=== PATIENT | female | born 1945 | race Caucasian/White ===

== ENCOUNTER 2017-02-01 06:14 | Inpatient (IN) ==
[2017-02-01] MEDS ORDERED: IOPAMIDOL 100 ML BOTTLE IJ ONE (06:15)
[2017-02-01] MEDS ORDERED: IPRATROPIUM/ALBUTEROL 3 ML AMPUL.NEB NEB ONE ×2 (06:27→06:34)
[2017-02-01] MEDS ORDERED: methylPREDNISolone SOD SUCC 125 MG/2 ML VIAL ONE (06:30)
[2017-02-01] MEDS ORDERED: methylPREDNISolone SOD SUCC 125 MG/2 ML VIAL IV ONE (06:34)
[2017-02-01] MEDS ORDERED: 0.9 % SODIUM CHLORIDE 1,000 ML IV SCH (06:45)
[2017-02-01] MEDS ORDERED: FUROSEMIDE 40 MG/4 ML VIAL IV ONE (06:53)
--- NOTE | 2017-02-01 06:56 | Emergency Department Note ---
SOB HPI - General Chief Complaint: Shortness of Breath/Dyspnea Stated Complaint: SOB Time Seen by Provider: 02/01/17 06:31 Source: patient Mode of arrival: ambulatory Limitations: no limitations - History of Present Illness 71-year-old female with a history of shortness of breath for the last month. She was seen at [facility] approximately a week and a half ago for COPD exacerbation when which she was given steroids and breathing treatments. States she stopped her prednisone approximately 5 days ago is not been using her albuterol. Comes in acutely short of breath at this time with sats in the low 80s initially patient states she has been a heavy smoker smoking 2 packs of cigarettes a day for greater than 40 years has quit approximately 1 or 2 years ago. She denies chest pain she has not been treated for CHF in the past.. Denies cardiac disease. Been no weight gain there is no edema in the lower extremities there is no orthopnea. Patient is afebrile. - Related Data Home Medications Medication Instructions Recorded Confirmed albuterol sulfate HFA 90 1 puff INHALATION Q6H 01/22/17 02/02/17 mcg/actuation aerosol inhaler amlodipine 5 mg tablet 5 mg PO QDAY 01/22/17 02/02/17 budesonide-formoterol HFA 160 2 inh INHALATION BID 01/22/17 02/02/17 mcg-4.5 mcg/actuation aerosol inhaler bupropion HCl XL 300 mg 24 hr 300 mg PO QDAY tab 01/22/17 02/02/17 tablet, extended release fluoxetine 40 mg capsule 40 mg PO QDAY 01/22/17 02/02/17 simvastatin 20 mg tablet 20 mg PO QHS tab 01/22/17 02/02/17 triamterene 37.5 1 tab-cap PO QDAY 01/22/17 02/02/17 mg-hydrochlorothiazide 25 mg tablet Naproxen (Pp) [Aleve (Pp)] 220 mg PO PRN PRN 02/02/17 02/02/17 Omeprazole 20 mg PO PRN PRN 02/02/17 02/02/17 Allergies Allergy/AdvReac Type Severity Reaction Status Date / Time No Known Drug Allergies Allergy Verified 02/01/17 06:22 Review of Systems All systems ED: reviewed and negative except as stated. Constitutional: Denies: fever, chills Cardiovascular: Reports: dyspnea on exertion. Denies: chest pain, palpitations , orthopnea Respiratory: Reports: as per HPI, cough, wheezes Gastrointestinal: Denies: abdominal pain Past Medical History - Past Medical History Medical history: Reports: COPD Surgical history ED: Reports: non-contributory Family history: Reports: non-contributory - Social History smoking status: Former smoker Packs per day: 2 Packyears: 80 Alcohol use: Reports: Rarely Drug use: Reports: none Physical Exam - General Limitations: no limitations General appearance: other (Able to speak in full sentences) - Head Head exam: atraumatic, normocephalic - Eye Eye exam: Present: normal appearance, PERRL - ENT ENT exam: normal exam, normal oropharynx - Neck Neck exam: Present: normal inspection, full ROM, trachea midline - Chest Chest inspection: Present: normal inspection, symmetric chest wall rise - Respiratory Respiratory exam: Present: normal lung sounds bilaterally, wheezes - Cardiovascular Cardiovascular exam: Present: regular rate, normal rhythm - Abdominal Exam Abdominal exam: Present: soft. Absent: distention, tenderness, guarding - Extremities Exam Extremities exam: Present: normal inspection, full ROM. Absent: tenderness - Back Exam Back exam: Present: normal inspection, full ROM. Absent: tenderness - Neurological Exam Neurological exam: Present: alert, oriented X3, CN II-XII intact - Psychiatric Psychiatric exam: Present: normal affect, normal mood - Skin Skin exam: Present: warm, dry Course Vital Signs Temperature 97.1 F 02/01/17 06:16 Pulse Rate 111 H 02/01/17 06:16 Respiratory Rate 60 H 02/01/17 06:16 Blood Pressure 150/65 02/01/17 06:16 Pulse Oximetry (%) 84 L 02/01/17 06:16 Temperature 97.8 F 02/03/17 12:00 Pulse Rate 106 H 02/03/17 13:24 Respiratory Rate 22 02/03/17 13:24 Blood Pressure 137/80 02/03/17 12:00 Pulse Oximetry (%) 92 02/03/17 12:00 Shortness of Breath/Dyspnea - MDM Narrative Medical decision making narrative: Chest x-ray discussed with Dr. Vora patient has severe interstitial fibrosis. But blood vessels are distended revealing some CHF. So area of consolidation in the right lateral lung grace with the possibility of it being pneumonia. Patient has been diuresed with Lasix. bnp was 354, blood cultures drawn and lactic acid.. stareted on rocephlin and zithromax.. pt trial of Bi Pap. cT sHOWS LARGE LYMPHADENAPTHY Hospitalist consulted and pt admitted - Lab Data Result diagrams: 02/02/17 04:25 02/03/17 04:22 Lab Results 02/01/17 02/01/17 02/01/17 Range/Units 06:40 06:40 06:40 WBC 17.3 H (4.5-11.0) K/mcL RBC 5.24 H (4.00-5.20) M/mcL Hgb 15.9 H (12.0-15.0) g/dL Hct 47.8 (36.0-48.0) % POC Hct 49.0 H (36.0-48.0) % MCV 91.4 (80.0-100.0) fL MCH 30.3 (26.0-34.0) pg MCHC 33.2 (31.0-36.0) g/dL RDW 13.2 (11.5-14.5) % Plt Count 347 (140-440) K/mcL MPV 9.1 (7.4-10.4) fL Gran % 85.7 H (38.0-78.0) % Lymph % (Auto) 10.3 L (15.5-49.0) % [place] % (Auto) 3.2 (1.0-12.0) % Eos % (Auto) 0.6 (0.0-7.0) % Baso % (Auto) 0.2 (0.0-2.0) % Gran # 14.8 H (1.8-8.0) K/mcL Lymph # (Auto) 1.8 (1.5-4.8) K/mcL [place] # (Auto) 0.5 (0.1-0.9) K/mcL Eos # (Auto) 0.1 (0.0-0.7) K/mcL Baso # (Auto) 0 (0.0-0.3) K/mcL D-Dimer 3.71 H (0.00-0.40) ug/ml POC Sodium 138 (133-145) mmol/L POC Potassium 3.9 (3.3-5.1) mmol/L POC Chloride 98 (96-108) mmol/L POC Total CO2 24 (22-30) mmol/L POC BUN 20 (8-23) mg/dl POC Creatinine 0.9 (0.6-1.1) mg/dl POC Glucose 140 H (70-105) mg/dL Hemoglobin A1c (4.0-6.0) % HGB Estim Average Glucose mg/dL POC WB Ioniz Calcium 1.02 L (1.16-1.32) mmol/L Total Creatine Kinase 56 (24-170) IU/L CK-MB (CK-2) 1.6 (0-2.9) ng/ml Troponin T (0-0.03) ng/ml NT-Pro-B Natriuret Pep 354.0 H (0-125) pg/ml Procalcitonin (<0.10) ng/mL 02/01/17 02/01/17 02/01/17 Range/Units 06:40 06:40 06:40 WBC (4.5-11.0) K/mcL RBC (4.00-5.20) M/mcL Hgb (12.0-15.0) g/dL Hct (36.0-48.0) % POC Hct (36.0-48.0) % MCV (80.0-100.0) fL MCH (26.0-34.0) pg MCHC (31.0-36.0) g/dL RDW (11.5-14.5) % Plt Count (140-440) K/mcL MPV (7.4-10.4) fL Gran % (38.0-78.0) % Lymph % (Auto) (15.5-49.0) % [place] % (Auto) (1.0-12.0) % Eos % (Auto) (0.0-7.0) % Baso % (Auto) (0.0-2.0) % Gran # (1.8-8.0) K/mcL Lymph # (Auto) (1.5-4.8) K/mcL [place] # (Auto) (0.1-0.9) K/mcL Eos # (Auto) (0.0-0.7) K/mcL Baso # (Auto) (0.0-0.3) K/mcL D-Dimer (0.00-0.40) ug/ml POC Sodium (133-145) mmol/L POC Potassium (3.3-5.1) mmol/L POC Chloride (96-108) mmol/L POC Total CO2 (22-30) mmol/L POC BUN (8-23) mg/dl POC Creatinine (0.6-1.1) mg/dl POC Glucose (70-105) mg/dL Hemoglobin A1c 6.1 H (4.0-6.0) % HGB Estim Average Glucose 128 mg/dL POC WB Ioniz Calcium (1.16-1.32) mmol/L Total Creatine Kinase (24-170) IU/L CK-MB (CK-2) (0-2.9) ng/ml Troponin T < 0.01 (0-0.03) ng/ml NT-Pro-B Natriuret Pep (0-125) pg/ml Procalcitonin < 0.05 (<0.10) ng/mL Disposition Clinical Impression: Congestive heart failure Disposition: Xfer As Inpt ([facility]) Condition: Fair
[2017-02-01 07:12] LABS: Basophils # (Auto) 0 K/mcL (0.0-0.3); Basophils % (Auto) 0.2 % (0.0-2.0); Eosinophils # (Auto) 0.1 K/mcL (0.0-0.7); Eosinophils % (Auto) 0.6 % (0.0-7.0); Granulocytes % (Auto) 85.7 % (38.0-78.0); Lymphocytes # (Auto) 1.8 K/mcL (1.5-4.8); Lymphocytes % (Auto) 10.3 % (15.5-49.0); Mean Cell Volume 91.4 fL (80.0-100.0); Mean Corpuscular HGB Conc 33.2 g/dL (31.0-36.0); Mean Corpuscular Hemoglobin 30.3 pg (26.0-34.0); Monocytes # (Auto) 0.5 K/mcL (0.1-0.9); Monocytes % (Auto) 3.2 % (1.0-12.0); Platelet Count 347 K/mcL (140-440); RBC 5.24 M/mcL (4.00-5.20); Red Cell Distribution Width 13.2 % (11.5-14.5)
[2017-02-01 07:34] LABS: Creatine Kinase 56 IU/L (24-170); Creatine Kinase MB 1.6 ng/ml (0-2.9)
[2017-02-01] MEDS ORDERED: cefTRIAXone 1 GM in DEXTROSE 5% IN WATER 50 ML IV ONE (07:51)
[2017-02-01] MEDS ORDERED: LEVOFLOXACIN 500 MG/100 ML BAG IV ONE (07:51)
[2017-02-01] MEDS ORDERED: LORazepam 2 MG/ML VIAL IV ONE (09:37)
[2017-02-01] MEDS ORDERED: LORazepam 2 MG/ML VIAL ONE (09:43)
--- NOTE | 2017-02-01 10:04 | Cat Scan Report ---
CLINICAL INFORMATION: Dyspnea. History of smoking COMPARISON: Plain film from 01/15/2017 and 02/01/2017 TECHNIQUE: Axial images obtained through the chest. 80 cc intravenous contrast administration was administered, and scanning was performed during pulmonary arterial phase. Sagittally and coronally reformatted images were obtained. MIP reformatted images. FINDINGS: Pulmonary parenchymal windows show severe paraseptal and centrilobular emphysema changes featuring multiple bullae - predominantly in the upper lobes and the peripheral lower lobes. There is also chronic bronchitis featuring wall thickening and dilatation of the bronchi with elevated lung volumes. There is extensive mixed groundglass and interstitial airspace disease throughout both peripheral lungs with relative central sparing. A 17 mm pleural-based mass in the lateral right lung apex (image 20) may represent fibrosis or malignancy. Mediastinal windows show massively enlarged bilateral hilar, precarinal and right peritracheal lymph nodes. The largest right hilar lymph node spans 4 cm. The pulmonary arteries are well opacified - no evidence of embolus. The central pulmonary arteries are mildly enlarged - the main pulmonary artery is 3 cm diameter suggestive of pulmonary hypertension. Thoracic aorta is normal in contour and caliber. Scattered atherosclerotic plaque seen in the aorta. The heart is mildly enlarged and there is moderate fibrofatty calcific plaque in the coronary arteries. Esophagus is grossly normal. No thyroid abnormality. There are no effusions. Images should the upper abdomen show a 2.2 cm mass in the left adrenal gland which is likely a benign adenoma. The visualized spleen pancreas and liver and gallbladder are normal. Bone windows show no osseous abnormality. IMPRESSION: 1. Severe centrilobular and periseptal emphysema changes. Mild enlargement of the central pulmonary arteries is compatible with pulmonary hypertension 2. Extensive patchy mixed groundglass alveolar/interstitial airspace disease throughout the periphery of both lungs. The differential diagnosis is extensive: Atypical edema from prior CHF, Sarcoidosis (particularly in light of bihilar adenopathy) , opportunistic infection (PCP, cytomegalovirus, RSV etc.) chronic noninfectious inflammatory disease (eosinophillic pneumonia, other idiopathic interstitial pneumonias, drug toxicity or hypersensitivity pneumonitis). 3. Markedly enlarged bilateral hilar, right paratracheal and precarinal lymph nodes. This may represent metastatic adenopathy from lung carcinoma such as small cell (a 17 mm pleural-based mass in the lateral right lung apex which may represent a primary lung carcinoma]. Alternatively, the possibility of lymphoma, sarcoidosis or atypical infection (TB, fungal, viral etc.) should be entertained. Consider pulmonary referral for transbronchial biopsy of one of the lymph nodes Interpreted and Authenticated by: Jake Vora 02/01/17
--- NOTE | 2017-02-01 10:11 | Internal Med History&Physical ---
Medical - H&P: HPI Patient information: Note initiated : 02/01/17 at 10:07 am Patient: Sommer Alvarez 71 y/o F admitted on for Shortness of breath. History of present illness: Ms. Alvarez is a 71 year old woman who has a greater than [id number] smoking history. She says she began to notice mild dyspnea with exertion approximately 10 years ago. However, she has been quite stable until a few weeks ago. A few weeks ago she began to notice significant dyspnea with minor activity. She was seen in an emergency room out of town about 2 weeks ago, and told that she was hypoxic. They told her they could not prescribe home O2 because it would not be paid for, but then she was able to arrange it through a home oxygen company. She was given a steroid taper, which she said made her feel wonderful, but she felt worse as soon as it was finished. She then saw her primary care physician recently, who prescribed more prednisone, and also prescribed an inhaler. However, the patient did not understand she was supposed to use the inhaler while she was still on the steroids, so she really did not use it. She presents today with worsening dyspnea, mainly with exertion. She says she really cannot even walk across the room. She was referred by her PCP to see our farm labor contractor, Dr. Rossi, on February 14. Lately, she has felt chilled, but denies any fever. She has a chronic cough, but says only once every day or so will she cough up a small amount of cream- colored phlegm. She had one day where her throat felt a little sore. She says she only occasionally has headaches or slight dizziness. She denies orthopnea. She denies new eye or ear symptoms, dysphasia, chest pain or palpitations, abdominal pain, nausea or vomiting. She says she has had occasional loose stools over the last several weeks. She has some urinary hesitancy and incontinence, intermittently and chronically. She denies any significant leg edema. He has not noticed any swollen glands. ER evaluation showed a PO2 in the 50s. CT angiogram was negative for PE, but was markedly abnormal, with enlarged lymph nodes and various other findings consistent with possible sarcoid, possible interstitial lung disease, possible malignancy. BNP was mildly elevated at 350. Leukocyte count was elevated. EKG and troponin were negative. Ionized calcium is a bit low. Past medical history: Glucose intolerance COPD Interstitial lung disease Somnolence Depression Hyperlipidemia Hypertension Previous smoking history greater than 80 pack years Medications: Albuterol inhaler every 6 hours as needed Budesonide-formoterol HFA 160-4.5 2 puffs twice daily Amlodipine 5 mg daily Dyazide 37.5/25 1 daily Bupropion XL 300 mg daily Prozac 40 mg daily Simvastatin 20 mg daily Home oxygen. Allergies: No known drug allergies Family history: Her mother after multiple strokes. Her father suddenly at age 82, of unknown causes. Her daughter of colon cancer within the last year. I believe her son as well. She says various aunts have had various other cancers, probably including breast. Social history: 80+ pack year smoking history, quit about 3 years ago. She drinks 1-3 glasses of wine per day. She does not use drugs. She lives alone. She has no family in the area, but her granddaughter is currently visiting from [place]. She has other friends that live in [place], that come to visit occasionally. Medical - H&P: Meds Home Medications Medication Instructions Recorded Confirmed Type albuterol sulfate HFA 90 1 puff INHALATION Q6H 01/22/17 01/22/17 History mcg/actuation aerosol inhaler amlodipine 5 mg tablet 5 mg PO QDAY 01/22/17 01/22/17 History budesonide-formoterol HFA 160 2 inh INHALATION BID 01/22/17 01/22/17 History mcg-4.5 mcg/actuation aerosol inhaler bupropion HCl XL 300 mg 24 hr 300 mg PO QDAY tab 01/22/17 01/22/17 History tablet, extended release fluoxetine 40 mg capsule 40 mg PO QDAY 01/22/17 01/22/17 History simvastatin 20 mg tablet 20 mg PO QHS tab 01/22/17 01/22/17 History triamterene 37.5 1 tab-cap PO QDAY 01/22/17 01/22/17 History mg-hydrochlorothiazide 25 mg tablet Allergies Allergy/AdvReac Type Severity Reaction Status Date / Time No Known Drug Allergies Allergy Verified 02/01/17 06:22 Medical - H&P: Exam - Constitutional Vitals: Temp Pulse Resp BP Pulse Ox 97.1 F 107 H 19 130/68 91 02/01/17 06:16 02/01/17 09:43 02/01/17 09:43 02/01/17 08:31 02/01/17 09:43 On presentation, heart rate was 109. Respiratory rate 29, and unlabored. O2 saturation was 84% on room air, but also dropped into the 70s in the ER. On 10 L nonrebreather, O2 sat came up to 93%. Because of her respiratory distress, she was ultimately placed on BiPAP. Head: Normocephalic atraumatic. Eyes: PERRLA, EOMI, anicteric. Ears: TMs and canals are clear. Pharynx: Pharynx is clear. Teeth are in fair condition. Neck: Is supple, without obvious lymphadenopathy, JVD, thyromegaly. Bruits were hard to listen for, as the equipment in her room is quite noisy. Cardiac exam: Shows regular rate and rhythm, with normal S1 and S2. No murmurs , rubs, gallops are appreciated. Lungs: Have a few scattered crackles, but are otherwise mostly clear currently. Breathing is mildly labored. I cannot appreciate any rhonchi or wheezes at this time. Abdomen: Is soft and nontender, without obvious masses. Bowel sounds are active. Extremities: Show no edema. Pulses are intact. No cyst is noted. Neurologic exam: Is grossly nonfocal. Skin exam: Does not show any worrisome lesions. Medical - H&P: Reslt - Labs CBC & Chem 7: 02/01/17 06:40 Labs: Short CBC 02/01/17 Range/Units 06:40 WBC 17.3 H (4.5-11.0) K/mcL Hgb 15.9 H (12.0-15.0) g/dL Hct 47.8 (36.0-48.0) % Plt Count 347 (140-440) K/mcL Cardiac Enzymes 02/01/17 02/01/17 Range/Units 06:40 06:40 Total Creatine Kinase 56 (24-170) IU/L CK-MB (CK-2) 1.6 (0-2.9) ng/ml Troponin T < 0.01 (0-0.03) ng/ml February 01: CBC differential shows absolute neutrophil count of 14,800. D-dimer is elevated at 3.7 Ionized calcium low at 1.02 BNP elevated at 354 Troponin less than 0.01 Pro-calcitonin is less than 0.05 CT angiogram of the chest: Severe centrilobular emphysema. Mild pulmonary hypertension. Extensive patchy groundglass alveolar disease throughout the lung peripheries. Consider atypical edema, sarcoid, opportunistic infection. Consider interstitial pneumonia. Markedly enlarged bilateral hilar paratracheal and pre-carinal lymph nodes, consistent with metastatic adenopathy , lymphoma, sarcoid, atypical infection. EKG shows sinus tachycardia at a rate of about 100. Without obvious acute ischemic changes. ABG on 5 L nasal cannula: PH 7.44, PCO2 37, PO2 50, bicarb 25, O2 saturation 84% Chest x-ray: Medical - H&P: A/P (1) Acute and chronic respiratory failure ([id number]) Current visit: Yes Status: Acute (2) Hypocalcemia Current visit: Yes Status: Acute (3) Other specified interstitial pulmonary diseases Current visit: No Status: Chronic (4) Hypertension Current visit: No Status: Chronic (5) Acute exacerbation of chronic obstructive pulmonary disease (COPD) Current visit: No Status: Acute (6) Hypoxia Current visit: No Status: Chronic - Narrative A/P Narrative: #1. Pulmonary. This patient presents with significant hypoxia, and very abnormal chest CT, with a wide differential diagnosis. She also has significant leukocytosis, which may be due to the oral steroids she has been taking lately.. She may have an interstitial pneumonia, superimposed on severe chronic emphysema. However she also has lymphadenopathy, and other abnormal lung findings, consistent with possible sarcoid disease, malignancy, interstitial lung diseases. She is currently acutely and severely hypoxic. -Admit to telemetry. Treat with BiPAP, or high flow oxygen, as needed to maintain O2 saturations. -Cover empirically with IV Zosyn to help cover aspiration type processes. Add Zithromax to cover atypical infections. -Blood and sputum cultures pending. -Pulmonary toilet, bronchodilators, IV steroids -She will need pulmonary evaluation, and already has an appointment set up for February 14, with Dr. Rossi.. The patient also reports that 1 of her providers is concerned about the possibility of sleep apnea. 2. Cardiac. Mildly elevated BNP. Patient was given Lasix in the ER, but I do not think she has significant CHF. If her hypoxia does not improve, consider echocardiogram. 3. Endocrine. -Hypocalcemia. Check PTH and vitamin D levels. I suspect she has low vitamin D intake. Respiratory alkalosis can also cause a change in ionized calcium. -history of glucose intolerance. Monitor. 4. Past history of significant tobacco abuse. 5. CODE STATUS: Full code, but no long-term life support. 6. DVT prophylaxis: Subcu Lovenox. 7. Obesity. This is likely impacting her dyspnea as well. #8. History of depression. The patient notes she has had depression since the of her father and 2 children within the last few years. Continue current medications. 9. Hyperlipidemia. Continue simvastatin. 10. Hypertension. Continue Dyazide and Norvasc. This visit is taken approximately 60 minutes, to review test results, review her case with the ER MD, interview and examine her, and write orders.
--- NOTE | 2017-02-01 10:26 | XRay Report ---
CLINICAL INFORMATION: Dyspnea COMPARISON: 01/15/2017 FINDINGS: The heart is mildly enlarged. Mild enlargement of the claus and right lower trachea suggests adenopathy. The pulmonary arteries are mildly distended. There is moderate mixed interstitial/alveolar airspace disease in the periphery of both lungs more prominent on the right. No effusions IMPRESSION: 1. Moderate diffuse mixed interstitial/alveolar airspace disease throughout the periphery of both lungs - more prominent in the right. It has progressed to the plain film two weeks prior. 2. Underlying emphysema. Follow-up CT to be performed Interpreted and Authenticated by: Jake Vora 02/01/17
[2017-02-01] MEDS ORDERED: ALBUTEROL SULFATE 2.5 MG/3 ML NEBULIZER NEB PRN (10:29)
[2017-02-01] MEDS ORDERED: ONDANSETRON 4 MG/2 ML VIAL IV PRN (10:29)
[2017-02-01] MEDS ORDERED: NALOXONE HCL 0.4 MG/ML VIAL IV PRN (10:29)
[2017-02-01] MEDS ORDERED: DOCUSATE SODIUM 100 MG CAPSULE PO PRN (10:29)
[2017-02-01] MEDS ORDERED: MAGNESIUM HYDROXIDE 30 ML ORAL.SUSP PO PRN (10:29)
[2017-02-01] MEDS: AZITHROMYCIN 500 MG in DEXTROSE 5% IN WATER 250 ML IV SCH (10:52)
[2017-02-01] MEDS: PIPERACILLIN SODIUM/TAZOBACTAM 3.375 GM in DEXTROSE 5% IN WATER 50 ML IV SCH ×2 (12:32→17:51)
[2017-02-01] MEDS: IPRATROPIUM/ALBUTEROL 3 ML AMPUL.NEB NEB SCH ×2 (13:56→19:24)
[2017-02-01] MEDS: methylPREDNISolone SOD SUCC 125 MG/2 ML VIAL IV SCH ×2 (16:19→22:23)
[2017-02-01] MEDS: HYDROcodone/APAP 5/325MG TABLET PO PRN (19:20)
[2017-02-02 00:18] LABS: Hemoglobin A1C 6.1 % HGB (4.0-6.0)
[2017-02-02] MEDS: PIPERACILLIN SODIUM/TAZOBACTAM 3.375 GM in DEXTROSE 5% IN WATER 50 ML IV SCH ×5 (00:41→23:12)
[2017-02-02] MEDS: IPRATROPIUM/ALBUTEROL 3 ML AMPUL.NEB NEB SCH ×4 (00:45→19:57)
[2017-02-02] MEDS: methylPREDNISolone SOD SUCC 125 MG/2 ML VIAL IV SCH ×3 (05:30→22:48)
[2017-02-02] MEDS ORDERED: LORazepam 2 MG/ML VIAL ONE (05:41)
[2017-02-02 06:19] LABS: Basophils # (Auto) 0 K/mcL (0.0-0.3); Basophils % (Auto) 0.1 % (0.0-2.0); Eosinophils # (Auto) 0 K/mcL (0.0-0.7); Eosinophils % (Auto) 0.3 % (0.0-7.0); Granulocytes % (Auto) 94.6 % (38.0-78.0); Lymphocytes # (Auto) 0.4 K/mcL (1.5-4.8); Lymphocytes % (Auto) 3.8 % (15.5-49.0); Mean Cell Volume 88.8 fL (80.0-100.0); Mean Corpuscular HGB Conc 33.7 g/dL (31.0-36.0); Mean Corpuscular Hemoglobin 29.9 pg (26.0-34.0); Monocytes # (Auto) 0.1 K/mcL (0.1-0.9); Monocytes % (Auto) 1.2 % (1.0-12.0); Platelet Count 265 K/mcL (140-440); RBC 4.81 M/mcL (4.00-5.20); Red Cell Distribution Width 13.4 % (11.5-14.5)
[2017-02-02] MEDS: amLODIPine 5 MG TABLET PO SCH (08:57)
[2017-02-02] MEDS: buPROPion 150 MG TAB.XL.24H PO SCH (08:57)
[2017-02-02] MEDS: FLUoxetine HCL 20 MG CAPSULE PO SCH (08:57)
[2017-02-02] MEDS: ENOXAPARIN 40 MG/0.4 ML SYRINGE SQ SCH (08:58)
[2017-02-02] MEDS: AZITHROMYCIN 500 MG in DEXTROSE 5% IN WATER 250 ML IV SCH (08:58)
[2017-02-02] MEDS: 0.9 % SODIUM CHLORIDE 10 ML SYRINGE IV SCH ×6 (09:18→22:48)
[2017-02-02 09:55] LABS: Parathyroid Hormone Intact 26.3 pg/ml (15-65)
[2017-02-02 10:09] LABS: ALT/SGPT 13 U/l (0-40); Albumin 3.2 gm/dL (3.2-5.2); Albumin/Globulin Ratio 0.8 (1.0-2.3); Alkaline Phosphatase 99 U/L (39-117); Bilirubin,Direct < 0.2 mg/dL (0.0-0.3); Blood Urea Nitrogen 25 mg/dl (8-23); Gamma Glutamyl Transpeptidase 12 U/L (5-36); Magnesium 2.5 mg/dL (1.6-2.5); Uric Acid 3.8 mg/dL (2.5-8.0)
[2017-02-02 10:10] LABS: Vitamin D 25 Hydroxy 17.67 ng/mL (>=30)
--- NOTE | 2017-02-02 11:23 | Internal Med Progress Note ---
Medical - PN: Subj Patient information: Note initiated : 02/02/17 at 11:23 am Patient: Sommer Alvarez 71 y/o F admitted on 02/01/17 for Shortness of breath. Interval history: February 01, 2017: History of present illness: Ms. Alvarez is a 71 year old woman who has a greater than 22-[id number] smoking history. She says she began to notice mild dyspnea with exertion approximately 10 years ago. However, she has been quite stable until a few weeks ago. A few weeks ago she began to notice significant dyspnea with minor activity. She was seen in an emergency room out of town about 2 weeks ago, and told that she was hypoxic. They told her they could not prescribe home O2 because it would not be paid for, but then she was able to arrange it through a home oxygen company. She was given a steroid taper, which she said made her feel wonderful, but she felt worse as soon as it was finished. She then saw her primary care physician recently, who prescribed more prednisone, and also prescribed an inhaler. However, the patient did not understand she was supposed to use the inhaler while she was still on the steroids, so she really did not use it. She presents today with worsening dyspnea, mainly with exertion. She says she really cannot even walk across the room. She was referred by her PCP to see our tire recapping machine operator, Dr. Rossi, on February 14. Lately, she has felt chilled, but denies any fever. She has a chronic cough, but says only once every day or so will she cough up a small amount of cream- colored phlegm. She had one day where her throat felt a little sore. She says she only occasionally has headaches or slight dizziness. She denies orthopnea. She denies new eye or ear symptoms, dysphasia, chest pain or palpitations, abdominal pain, nausea or vomiting. She says she has had occasional loose stools over the last several weeks. She has some urinary hesitancy and incontinence, intermittently and chronically. She denies any significant leg edema. He has not noticed any swollen glands. ER evaluation showed a PO2 in the 50s. CT angiogram was negative for PE, but was markedly abnormal, with enlarged lymph nodes and various other findings consistent with possible sarcoid, possible interstitial lung disease, possible malignancy. BNP was mildly elevated at 350. Leukocyte count was elevated. EKG and troponin were negative. Ionized calcium is a bit low. February 02: The patient says she slept well last night., This morning, however, someone brought her a cup in case she could produce a sputum sample, and she got very upset and anxious. She says it reminded her that her aunt with emphysema. She says she definitely feels a lot better today, but if they take her high flow oxygen off for even a minute, her saturations dropped into the 60s. Any activity at all makes her feel quite short of breath. She has a mild cough which is minimally productive. She otherwise denies fever chills, headaches or dizziness, chest pain or palpitations, abdominal pain, nausea or vomiting or diarrhea, dysuria. - Constitutional Vitals: Vital Signs Temp Pulse Resp BP Pulse Ox 98.4 F 109 H 22 122/68 91 02/02/17 08:00 02/02/17 08:00 02/02/17 08:00 02/02/17 04:00 02/02/17 08:00 Period Temp Pulse Resp BP Sys/Angel Pulse Ox Last 24 Hr 97.0 F-98.4 F 95-109 22-35 119-142/54-96 91-96 Intake and Output 02/01/17 02/02/17 02/02/17 21:59 05:59 13:59 Intake Total 150 / 150 410 / 410 133 / 133 Output Total 900 / 900 Balance 150 / 150 -490 / -490 133 / 133 Weight 176 lb 2.389 oz Intake & Output: Intake & Output 02/01/17 02/02/17 02/02/17 21:59 05:59 13:59 Intake Total 150 / 150 410 / 410 133 / 133 Output Total 900 / 900 Balance 150 / 150 -490 / -490 133 / 133 Weight 176 lb 2.389 oz Intake: IV 50 / 50 50 / 50 133 / 133 Zosyn 3.375 gm In 50 / 50 50 / 50 50 / 50 Dextrose 5% in Water 50 ml @ 100 mls/hr IV Q6H [facility] Rx#:[id number] Oral 100 / 100 360 / 360 Output: Void Amount 900 / 900 Heart rate is 108. O2 saturation is 94% on high flow oxygen of 65%. On exam, she is currently in no acute distress. She did receive a small dose of Ativan early this morning. Neck is supple without obvious lymphadenopathy or JVD. Cardiac exam shows regular rate and rhythm. Lungs: Have markedly decreased breath sounds throughout. There are a few scattered soft wheezes and crackles, but otherwise lungs are fairly clear. Abdomen is soft and nontender. Extremities: Show no significant edema. Neurologic exam: Patient is alert and oriented. She is quite anxious. Motor exam is grossly nonfocal. Medical - PN: Obj Da - Labs CBC & Chem 7: 02/02/17 04:25 02/02/17 04:25 Labs: Abnormal Lab Results 02/02/17 02/02/17 02/02/17 04:25 04:25 04:25 WBC 11.4 H Gran % 94.6 H Lymph % (Auto) 3.8 L Gran # 10.8 H Lymph # (Auto) 0.4 L Chloride 95 L Anion Gap 17.0 H BUN 25 H Glucose 186 H Lactate Dehydrogenase 479 H Globulin 4.0 H Albumin/Globulin Ratio 0.8 L 25-OH Vitamin D Total 17.67 L February 02: Blood cultures are negative so far. MRSA screen is negative Chest x-ray: Shows large diffuse mixed alveolar and interstitial infiltrates throughout both peripheral lungs, with slight progression compared to yesterday. February 01: CBC differential shows absolute neutrophil count of 14,800. D-dimer is elevated at 3.7 Ionized calcium low at 1.02 BNP elevated at 354 Troponin less than 0.01 Pro-calcitonin is less than 0.05 CT angiogram of the chest: Severe centrilobular emphysema. Mild pulmonary hypertension. Extensive patchy groundglass alveolar disease throughout the lung peripheries. Consider atypical edema, sarcoid, opportunistic infection. Consider interstitial pneumonia. Markedly enlarged bilateral hilar paratracheal and pre-carinal lymph nodes, consistent with metastatic adenopathy , lymphoma, sarcoid, atypical infection. EKG shows sinus tachycardia at a rate of about 100. Without obvious acute ischemic changes. ABG on 5 L nasal cannula: PH 7.44, PCO2 37, PO2 50, bicarb 25, O2 saturation 84% Chest x-ray: Moderate diffuse interstitial and alveolar airspace disease throughout the periphery of both lungs, more prominent on the right. Meds: Medications Acetaminophen (Tylenol) 650 mg PO Q6HP PRN PRN Reason: PAIN/FEVER > 101 Hydrocodone Bitart/Acetaminophen ([place] 5/325mg) 1 tab PO Q4HP PRN PRN Reason: Pain Last Admin: 02/01/17 19:20 Dose: 1 tab Albuterol Sulfate (Ventolin) 2.5 mg NEB Q4HRT PRN PRN Reason: Shortness Of Breath Or Wheezing Albuterol/Ipratropium (Duoneb) 3 ml NEB Q6HRT [facility] Last Admin: 02/02/17 07:10 Dose: 3 ml Amlodipine Besylate (Norvasc) 5 mg PO DAILY [facility] Last Admin: 02/02/17 08:57 Dose: 5 mg Bupropion HCl (Wellbutrin Xl) 300 mg PO DAILY [facility] Last Admin: 02/02/17 08:57 Dose: 300 mg Docusate Sodium (Colace) 100 mg PO BID PRN PRN Reason: Constipation Enoxaparin Sodium (Lovenox) 40 mg SQ DAILY [facility] Last Admin: 02/02/17 08:58 Dose: 40 mg Fluoxetine HCl (Prozac) 40 mg PO DAILY [facility] Last Admin: 02/02/17 08:57 Dose: 40 mg Azithromycin 500 mg/ Dextrose 250 mls @ 250 mls/hr IV DAILY [facility] Stop: 02/03/17 09:59 Last Admin: 02/02/17 08:58 Dose: 250 mls/hr Piperacillin Sod/Tazobactam (Sod 3.375 gm/ Dextrose) 50 mls @ 100 mls/hr IV Q6H [facility] Last Infusion: 02/02/17 06:00 Dose: Infused Lorazepam (Ativan) 0.5 mg IV Q4-6HP PRN PRN Reason: ANXIETY/SEDATION Magnesium Hydroxide (Milk Of Magnesia) 30 ml PO DAILYP PRN PRN Reason: Constipation Methylprednisolone Sodium Succinate (Solu-Medrol) 80 mg IV Q8 [facility] Last Admin: 02/02/17 05:30 Dose: 80 mg Naloxone HCl (Narcan) 0.1 mg IV Q2MIN PRN PRN Reason: Opiate Reversal Ondansetron HCl (Zofran) 4 mg IV Q4HP PRN PRN Reason: Nausea And Vomiting Simvastatin (Zocor) 20 mg PO HS [facility] Sodium Chloride (Saline Flush) 10 ml IV Q8 [facility] Last Admin: 02/02/17 09:18 Dose: 10 ml Medical - PN: A/P - Time Spent With Patient Total time spent is greater than 50% in coordination of care (as documented) at patient's floor/unit and/or counseling patient: Greater than 35 minutes (1) Acute and chronic respiratory failure ([id number]) Status: Acute Current Visit: Yes (2) Hypocalcemia Status: Acute Current Visit: Yes (3) Other specified interstitial pulmonary diseases Status: Chronic Current Visit: No (4) Hypertension Status: Chronic Current Visit: No (5) Acute exacerbation of chronic obstructive pulmonary disease (COPD) Status: Acute Current Visit: No (6) Hypoxia Status: Chronic Current Visit: No - Narrative A/P Narrative: #1. Pulmonary. This patient presents with significant hypoxia, and very abnormal chest CT, with a wide differential diagnosis. She also has significant leukocytosis, which may be due to the oral steroids she has been taking lately.. She may have an interstitial pneumonia, superimposed on severe chronic emphysema. However she also has lymphadenopathy, and other abnormal lung findings, consistent with possible sarcoid disease, malignancy, interstitial lung diseases. She remains quite hypoxic. However, she does seem to feel quite a bit better than yesterday. For today, we will continue with IV Zithromax and Zosyn, IV steroids, bronchodilators and pulmonary toilet. If her oxygen requirements increase much, though, we may want to send her to a different facility that has access to records management specialist. -She is not currently on BiPAP, as she is maintaining her O2 saturation with a high flow oxygen. She really did not like the BiPAP mask, so we are going with this option for now. -She will need pulmonary evaluation, and already has an appointment set up for February 14, with Dr. Rossi.. -The patient also reports that 1 of her providers is concerned about the possibility of sleep apnea. 2. Cardiac. Mildly elevated BNP. Patient was given Lasix in the ER, but I do not think she has significant CHF. If her hypoxia does not improve, consider echocardiogram. 3. Endocrine. -Hypocalcemia. Vitamin D level is quite low. We will replace both vitamin D and calcium, and follow. -Hyperglycemia. History of glucose intolerance, now aggravated by steroids. . Monitor. Add insulin sliding scale. 4. Past history of significant tobacco abuse. 5. CODE STATUS: Full code, but no long-term life support. 6. DVT prophylaxis: Subcu Lovenox. 7. Obesity. This is likely impacting her dyspnea as well. #8. History of depression. The patient notes she has had depression since the of her father and 2 children within the last few years. Continue current medications. Hopefully, she has psychiatric follow-up, as it is a little unusual to used to SSRI medications without other meds. 9. Hyperlipidemia. Continue simvastatin. 10. Hypertension. Controlled. Continue Dyazide and Norvasc. Medical - PN: Qual - VTE Deep Vein Thrombosis/Pulmonary Embolism Present on Admission: No
--- NOTE | 2017-02-02 11:35 | XRay Report ---
CLINICAL INFORMATION: Hypoxia COMPARISON: 02/01/2017 FINDINGS: Mild cardiomegaly is unchanged. Mediastinum is unremarkable. Pulmonary vessels are only slightly distended. Large diffuse mixed interstitial/alveolar infiltrates throughout both peripheral lungs shows slight progression. No definite effusion IMPRESSION: Large diffuse mixed alveolar/interstitial infiltrates throughout both peripheral lungs show slight progression from yesterday Interpreted and Authenticated by: Jake Vora 02/02/17
[2017-02-02] MEDS: LORazepam 2 MG/ML VIAL IV PRN ×2 (16:08→18:50)
[2017-02-02] MEDS: INSULIN LISPRO 1 UNIT/0.01 ML UNIT SQ SCH ×2 (17:39→20:22)
[2017-02-02] MEDS: CALCIUM CARBONATE 500 MG TAB.CHEW PO SCH (20:20)
[2017-02-02] MEDS: SIMVASTATIN 20 MG TABLET PO SCH (20:20)
[2017-02-03] MEDS: IPRATROPIUM/ALBUTEROL 3 ML AMPUL.NEB NEB SCH ×4 (00:32→20:04)
[2017-02-03] MEDS: PIPERACILLIN SODIUM/TAZOBACTAM 3.375 GM in DEXTROSE 5% IN WATER 50 ML IV SCH ×3 (05:53→18:14)
[2017-02-03] MEDS: methylPREDNISolone SOD SUCC 125 MG/2 ML VIAL IV SCH ×3 (05:53→21:59)
[2017-02-03] MEDS: 0.9 % SODIUM CHLORIDE 10 ML SYRINGE IV SCH ×7 (05:53→21:58)
[2017-02-03 07:55] LABS: ALT/SGPT 14 U/l (0-40); Albumin 3.1 gm/dL (3.2-5.2); Albumin/Globulin Ratio 0.9 (1.0-2.3); Alkaline Phosphatase 94 U/L (39-117); Bilirubin,Direct < 0.2 mg/dL (0.0-0.3); Blood Urea Nitrogen 38 mg/dl (8-23); Gamma Glutamyl Transpeptidase 13 U/L (5-36); Magnesium 2.6 mg/dL (1.6-2.5); Uric Acid 3.7 mg/dL (2.5-8.0)
[2017-02-03] MEDS: INSULIN LISPRO 1 UNIT/0.01 ML UNIT SQ SCH ×4 (08:21→21:06)
[2017-02-03] MEDS: VITAMIN D3 5,000 UNIT CAPSULE PO SCH (10:04)
[2017-02-03] MEDS: buPROPion 150 MG TAB.XL.24H PO SCH (10:04)
[2017-02-03] MEDS: FLUoxetine HCL 20 MG CAPSULE PO SCH (10:05)
[2017-02-03] MEDS: CALCIUM CARBONATE 500 MG TAB.CHEW PO SCH ×2 (10:07→21:06)
[2017-02-03] MEDS: ENOXAPARIN 40 MG/0.4 ML SYRINGE SQ SCH (10:07)
[2017-02-03] MEDS: AZITHROMYCIN 500 MG in DEXTROSE 5% IN WATER 250 ML IV SCH (10:07)
[2017-02-03] MEDS: amLODIPine 5 MG TABLET PO SCH (10:07)
--- NOTE | 2017-02-03 10:16 | XRay Report ---
CLINICAL INFORMATION: Hypoxia COMPARISON: 02/02/2017 FINDINGS: Moderate cardiomegaly is unchanged. Mediastinum and pulmonary vessels are unremarkable. Diffuse mixed interstitial/alveolar infiltrates throughout both lungs shows moderate improvement IMPRESSION: Moderate improved aeration in diffuse mixed interstitial/alveolar infiltrates throughout both lungs Interpreted and Authenticated by: Jake Vora 02/03/17
[2017-02-03] MEDS: ACETAMINOPHEN 325 MG TABLET PO PRN (10:39)
--- NOTE | 2017-02-03 15:26 | Internal Med Progress Note ---
Medical - PN: Subj Patient information: Note initiated : 02/03/17 at 3:26 pm Patient: Sommer Alvarez 71 y/o F admitted on 02/01/17 for SOB/Respiratory Failure, Hypocalcemia. Interval history: February 01, 2017: History of present illness: Ms. Alvarez is a 71 year old woman who has a greater than [id number] smoking history. She says she began to notice mild dyspnea with exertion approximately 10 years ago. However, she has been quite stable until a few weeks ago. A few weeks ago she began to notice significant dyspnea with minor activity. She was seen in an emergency room out of town about 2 weeks ago, and told that she was hypoxic. They told her they could not prescribe home O2 because it would not be paid for, but then she was able to arrange it through a home oxygen company. She was given a steroid taper, which she said made her feel wonderful, but she felt worse as soon as it was finished. She then saw her primary care physician recently, who prescribed more prednisone, and also prescribed an inhaler. However, the patient did not understand she was supposed to use the inhaler while she was still on the steroids, so she really did not use it. She presents today with worsening dyspnea, mainly with exertion. She says she really cannot even walk across the room. She was referred by her PCP to see our funeral sales manager, Dr. Rossi, on February 14. Lately, she has felt chilled, but denies any fever. She has a chronic cough, but says only once every day or so will she cough up a small amount of cream- colored phlegm. She had one day where her throat felt a little sore. She says she only occasionally has headaches or slight dizziness. She denies orthopnea. She denies new eye or ear symptoms, dysphasia, chest pain or palpitations, abdominal pain, nausea or vomiting. She says she has had occasional loose stools over the last several weeks. She has some urinary hesitancy and incontinence, intermittently and chronically. She denies any significant leg edema. He has not noticed any swollen glands. ER evaluation showed a PO2 in the 50s. CT angiogram was negative for PE, but was markedly abnormal, with enlarged lymph nodes and various other findings consistent with possible sarcoid, possible interstitial lung disease, possible malignancy. BNP was mildly elevated at 350. Leukocyte count was elevated. EKG and troponin were negative. Ionized calcium is a bit low. February 02: The patient says she slept well last night., This morning, however, someone brought her a cup in case she could produce a sputum sample, and she got very upset and anxious. She says it reminded her that her aunt with emphysema. She says she definitely feels a lot better today, but if they take her high flow oxygen off for even a minute, her saturations dropped into the 60s. Any activity at all makes her feel quite short of breath. She has a mild cough which is minimally productive. She otherwise denies fever chills, headaches or dizziness, chest pain or palpitations, abdominal pain, nausea or vomiting or diarrhea, dysuria. February 03: Patient says she is breathing easier today. However, her O2 saturations still dropped dramatically if she gets out of bed for any reason, generally down into the 70s. She says she has a little more of a cough, but is still not productive. She is still quite concerned about trying to be out of the hospital before 06 February. Otherwise, she denies headaches, fever or chills, chest pain or palpitations, abdominal pain, nausea or vomiting, diarrhea or constipation or dysuria. - Constitutional Vitals: Vital Signs Temp Pulse Resp BP Pulse Ox 97.8 F 106 H 22 137/80 92 02/03/17 12:00 02/03/17 13:24 02/03/17 13:24 02/03/17 12:00 02/03/17 12:00 Period Temp Pulse Resp BP Sys/Angel Pulse Ox Last 24 Hr 97.2 F-99.1 F 94-111 20-28 107-139/63-85 84-96 Intake and Output 02/03/17 02/03/17 02/03/17 05:59 13:59 21:59 Intake Total 530 / 530 1790 / 1790 Output Total 500 / 500 500 / 500 225 / 225 Balance 1290 / 1290 -225 / -225 Intake & Output: Intake & Output 02/03/17 02/03/17 02/03/17 05:59 13:59 21:59 Intake Total 530 / 530 1790 / 1790 Output Total 500 / 500 500 / 500 225 / 225 Balance 1290 / 1290 -225 / -225 Intake: IV 50 / 50 300 / 300 Zosyn 3.375 gm In 50 / 50 50 / 50 Dextrose 5% in Water 50 ml @ 100 mls/hr IV Q6H [facility] Rx#:[id number] Oral 480 / 480 1490 / 1490 Output: Urine/Stool Mix 500 / 500 500 / 500 225 / 225 Other: Meal Lunch Percent of Meal Consumed 90 Feeding Ability Independent Current heart rate is 106. Respiratory rate ranging from 22-26. O2 saturation is 92% with an FiO2 of 55% On exam, she is currently in no acute distress. Neck is supple without obvious lymphadenopathy or JVD. Cardiac exam shows regular rate and rhythm. Lungs: Have markedly decreased breath sounds throughout. There are a few scattered soft wheezes and crackles, but otherwise lungs are fairly clear. Abdomen is soft and nontender. Extremities: Show no significant edema. Neurologic exam: Patient is alert and oriented. She is quite anxious. Motor exam is grossly nonfocal. Medical - PN: Obj Da - Labs CBC & Chem 7: 02/02/17 04:25 02/03/17 04:22 Labs: Abnormal Lab Results 02/03/17 02/02/17 02/02/17 04:22 04:25 04:25 WBC 11.4 H Gran % 94.6 H Lymph % (Auto) 3.8 L Gran # 10.8 H Lymph # (Auto) 0.4 L Chloride Anion Gap BUN 38 H Glucose 148 H Magnesium 2.6 H Lactate Dehydrogenase 379 H Albumin 3.1 L Globulin Albumin/Globulin Ratio 0.9 L 25-OH Vitamin D Total 17.67 L 02/02/17 04:25 WBC Gran % Lymph % (Auto) Gran # Lymph # (Auto) Chloride 95 L Anion Gap 17.0 H BUN 25 H Glucose 186 H Magnesium Lactate Dehydrogenase 479 H Albumin Globulin 4.0 H Albumin/Globulin Ratio 0.8 L 25-OH Vitamin D Total February 03: Chest x-ray shows moderately improved aeration and diffuse mixed interstitial/ alveolar infiltrates. February 02: Blood cultures are negative so far. MRSA screen is negative Vitamin D level is low at 17.67 Chest x-ray: Shows large diffuse mixed alveolar and interstitial infiltrates throughout both peripheral lungs, with slight progression compared to yesterday. February 01: CBC differential shows absolute neutrophil count of 14,800. Total white blood cell count 17,000 D-dimer is elevated at 3.7 Ionized calcium low at 1.02 BNP elevated at 354 Troponin less than 0.01 Pro-calcitonin is less than 0.05 CT angiogram of the chest: Severe centrilobular emphysema. Mild pulmonary hypertension. Extensive patchy groundglass alveolar disease throughout the lung peripheries. Consider atypical edema, sarcoid, opportunistic infection. Consider interstitial pneumonia. Markedly enlarged bilateral hilar paratracheal and pre-carinal lymph nodes, consistent with metastatic adenopathy , lymphoma, sarcoid, atypical infection. EKG shows sinus tachycardia at a rate of about 100. Without obvious acute ischemic changes. ABG on 5 L nasal cannula: PH 7.44, PCO2 37, PO2 50, bicarb 25, O2 saturation 84% Chest x-ray: Moderate diffuse interstitial and alveolar airspace disease throughout the periphery of both lungs, more prominent on the right. Meds: Medications Acetaminophen (Tylenol) 650 mg PO Q6HP PRN PRN Reason: PAIN/FEVER > 101 Last Admin: 02/03/17 10:39 Dose: 650 mg Hydrocodone Bitart/Acetaminophen (Gates 5/325mg) 1 tab PO Q4HP PRN PRN Reason: Pain Last Admin: 02/01/17 19:20 Dose: 1 tab Albuterol Sulfate (Ventolin) 2.5 mg NEB Q4HRT PRN PRN Reason: Shortness Of Breath Or Wheezing Albuterol/Ipratropium (Duoneb) 3 ml NEB Q6HRT [facility] Last Admin: 02/03/17 13:23 Dose: 3 ml Amlodipine Besylate (Norvasc) 5 mg PO DAILY [facility] Last Admin: 02/03/17 10:07 Dose: 5 mg Bupropion HCl (Wellbutrin Xl) 300 mg PO DAILY [facility] Last Admin: 02/03/17 10:04 Dose: 300 mg Calcium Carbonate/Glycine (Tums) 500 mg PO BID [facility] Last Admin: 02/03/17 10:07 Dose: 500 mg Diagnostic Test (Pha) (Accu-Chek) 1 each FS ACHS [facility] Last Admin: 02/03/17 12:11 Dose: 1 each Docusate Sodium (Colace) 100 mg PO BID PRN PRN Reason: Constipation Enoxaparin Sodium (Lovenox) 40 mg SQ DAILY [facility] Last Admin: 02/03/17 10:07 Dose: 40 mg Fluoxetine HCl (Prozac) 40 mg PO DAILY [facility] Last Admin: 02/03/17 10:05 Dose: 40 mg Piperacillin Sod/Tazobactam (Sod 3.375 gm/ Dextrose) 50 mls @ 100 mls/hr IV Q6H [facility] Last Admin: 02/03/17 12:13 Dose: 100 mls/hr Insulin Human Lispro (Humalog) 0 unit SQ ACHS [facility] PRN Reason: Protocol Last Admin: 02/03/17 12:12 Dose: 3 unit Lorazepam (Ativan) 0.5 mg IV Q4-6HP PRN PRN Reason: ANXIETY/SEDATION Last Admin: 02/02/17 18:50 Dose: 0.5 mg Magnesium Hydroxide (Milk Of Magnesia) 30 ml PO DAILYP PRN PRN Reason: Constipation Methylprednisolone Sodium Succinate (Solu-Medrol) 80 mg IV Q8 [facility] Last Admin: 02/03/17 14:54 Dose: 80 mg Naloxone HCl (Narcan) 0.1 mg IV Q2MIN PRN PRN Reason: Opiate Reversal Ondansetron HCl (Zofran) 4 mg IV Q4HP PRN PRN Reason: Nausea And Vomiting Simvastatin (Zocor) 20 mg PO HS [facility] Last Admin: 02/02/17 20:20 Dose: 20 mg Sodium Chloride (Saline Flush) 10 ml IV Q8 [facility] Last Admin: 02/03/17 14:55 Dose: 10 ml Vitamin D (Vitamin D3) 5,000 unit PO DAILY [facility] Last Admin: 02/03/17 10:04 Dose: 5,000 unit Medical - PN: A/P - Time Spent With Patient Total time spent is greater than 50% in coordination of care (as documented) at patient's floor/unit and/or counseling patient: 25 - 35 minutes (1) Acute and chronic respiratory failure ([id number]) Status: Acute Current Visit: Yes (2) Hypocalcemia Status: Acute Current Visit: Yes (3) Other specified interstitial pulmonary diseases Status: Chronic Current Visit: No (4) Hypertension Status: Chronic Current Visit: No (5) Acute exacerbation of chronic obstructive pulmonary disease (COPD) Status: Acute Current Visit: No (6) Hypoxia Status: Chronic Current Visit: No - Narrative A/P Narrative: #1. Pulmonary. This patient presents with significant hypoxia, and very abnormal chest CT, with a wide differential diagnosis. She also has significant leukocytosis, which may be due to the oral steroids she has been taking lately.. She may have an interstitial pneumonia, superimposed on severe chronic emphysema. However she also has lymphadenopathy, and other abnormal lung findings, consistent with possible sarcoid disease, malignancy, interstitial lung diseases. She remains quite hypoxic. However, she does seem to feel quite a bit better than yesterday. For today, we will continue with IV Zithromax and Zosyn, IV steroids, bronchodilators and pulmonary toilet. If her oxygen requirements increase much, though, we may want to send her to a different facility that has access to deck specialist. -She is not currently on BiPAP, as she is maintaining her O2 saturation with a high flow oxygen. She really did not like the BiPAP mask, so we are going with this option for now. -She will need pulmonary evaluation, and already has an appointment set up for February 14, with Dr. Rossi.. -The patient also reports that 1 of her providers is concerned about the possibility of sleep apnea. 2. Cardiac. Mildly elevated BNP. Patient was given Lasix in the ER, but I do not think she has significant CHF. Of course, she does have increased cardiac risk. Echocardiogram was performed, and results are pending. 3. Endocrine. -Hypocalcemia. Vitamin D level is quite low. We will replace both vitamin D and calcium, and follow. Calcium is somewhat improved today. -Hyperglycemia. History of glucose intolerance, now aggravated by steroids. Glucoses are ranging 141-229 today. Continue sliding scale. 4. Past history of significant tobacco abuse. 5. CODE STATUS: Full code, but no long-term life support. 6. DVT prophylaxis: Subcu Lovenox. 7. Obesity. This is likely impacting her dyspnea as well. #8. History of depression. The patient notes she has had depression since the of her father and 2 children within the last few years. Continue current medications. Hopefully, she has psychiatric follow-up, as it is a little unusual to used to SSRI medications without other meds. 9. Hyperlipidemia. Continue simvastatin. 10. Hypertension. Controlled. Continue Dyazide and Norvasc. She has lots of questions today, but what might speed up her recovery. She was wondering if finding someone else to do a lung biopsy would be helpful, but I explained that a biopsy probably would not get her out of the hospital sooner, and more than likely Dr. Rossi will be the one that has to do it. Medical - PN: Qual - VTE Deep Vein Thrombosis/Pulmonary Embolism Present on Admission: No
[2017-02-03] MEDS: LORazepam 2 MG/ML VIAL IV PRN (19:17)
[2017-02-03] MEDS: HYDROcodone/APAP 5/325MG TABLET PO PRN (21:06)
[2017-02-03] MEDS: SIMVASTATIN 20 MG TABLET PO SCH (21:06)
[2017-02-03 21:58] LABS: Appearance,Urine CLEAR; Bacteria,Urine 0 /hpf (0); Bilirubin,Urine NEG (NEG); Color,Urine YELLOW; Glucose,Urine (UA) 50 mg/dL (NEG); Leukocyte Esterase,Urine NEG /uL (NEG); Mucus,Urine FEW /hpf (0); Nitrate,Urine NEG (NEG); Protein,Urine NEG (NEG); Specific Gravity,Urine 1.028 (1.000-1.035); Urine Blood 0.03 mg/dL (<0.03); Urine RBC 16 /hpf (0-1); Urine Squamous Epithelial Cell < 1 /hpf (0-4); Urine Transitional Epi Cells < 1 /hpf (0-2); Urine WBC 15 /hpf (0-4); Urobilinogen,Urine NEG (NEG)
[2017-02-04] MEDS: PIPERACILLIN SODIUM/TAZOBACTAM 3.375 GM in DEXTROSE 5% IN WATER 50 ML IV SCH ×5 (00:12→23:50)
[2017-02-04] MEDS: IPRATROPIUM/ALBUTEROL 3 ML AMPUL.NEB NEB SCH ×4 (00:14→23:11)
[2017-02-04 05:30] LABS: Basophils # (Auto) 0 K/mcL (0.0-0.3); Basophils % (Auto) 0 % (0.0-2.0); Eosinophils # (Auto) 0 K/mcL (0.0-0.7); Eosinophils % (Auto) 0 % (0.0-7.0); Granulocytes % (Auto) 93.5 % (38.0-78.0); Lymphocytes # (Auto) 0.4 K/mcL (1.5-4.8); Lymphocytes % (Auto) 4.2 % (15.5-49.0); Mean Cell Volume 89.7 fL (80.0-100.0); Mean Corpuscular HGB Conc 33.1 g/dL (31.0-36.0); Mean Corpuscular Hemoglobin 29.7 pg (26.0-34.0); Monocytes # (Auto) 0.2 K/mcL (0.1-0.9); Monocytes % (Auto) 2.3 % (1.0-12.0); Platelet Count 290 K/mcL (140-440); Red Cell Distribution Width 13.5 % (11.5-14.5)
[2017-02-04] MEDS: methylPREDNISolone SOD SUCC 125 MG/2 ML VIAL IV SCH ×3 (05:32→22:11)
[2017-02-04] MEDS: 0.9 % SODIUM CHLORIDE 10 ML SYRINGE IV SCH ×6 (05:33→22:12)
[2017-02-04 05:48] LABS: ALT/SGPT 16 U/l (0-40); Albumin 2.8 gm/dL (3.2-5.2); Albumin/Globulin Ratio 0.8 (1.0-2.3); Alkaline Phosphatase 81 U/L (39-117); Bilirubin,Direct < 0.2 mg/dL (0.0-0.3); Blood Urea Nitrogen 35 mg/dl (8-23); Gamma Glutamyl Transpeptidase 15 U/L (5-36); Magnesium 2.5 mg/dL (1.6-2.5); Uric Acid 3.1 mg/dL (2.5-8.0)
[2017-02-04] MEDS: INSULIN LISPRO 1 UNIT/0.01 ML UNIT SQ SCH ×4 (08:23→22:15)
[2017-02-04] MEDS: LORazepam 2 MG/ML VIAL IV PRN ×2 (09:34→20:08)
[2017-02-04] MEDS: amLODIPine 5 MG TABLET PO SCH (09:39)
[2017-02-04] MEDS: VITAMIN D3 5,000 UNIT CAPSULE PO SCH (09:39)
[2017-02-04] MEDS: ENOXAPARIN 40 MG/0.4 ML SYRINGE SQ SCH (09:40)
[2017-02-04] MEDS: FLUoxetine HCL 20 MG CAPSULE PO SCH (09:40)
[2017-02-04] MEDS: CALCIUM CARBONATE 500 MG TAB.CHEW PO SCH ×2 (09:40→20:09)
[2017-02-04] MEDS: buPROPion 150 MG TAB.XL.24H PO SCH (09:40)
--- NOTE | 2017-02-04 11:07 | Internal Med Progress Note ---
Medical - PN: Subj Patient information: Note initiated : 02/04/17 at 11:07 am Patient: Sommer Alvarez 71 y/o F admitted on 02/01/17 for SOB/Respiratory Failure, Hypocalcemia. Interval history: February 01, 2017: History of present illness: Ms. Alvarez is a 71 year old woman who has a greater than [id number] smoking history. She says she began to notice mild dyspnea with exertion approximately 10 years ago. However, she has been quite stable until a few weeks ago. A few weeks ago she began to notice significant dyspnea with minor activity. She was seen in an emergency room out of town about 2 weeks ago, and told that she was hypoxic. They told her they could not prescribe home O2 because it would not be paid for, but then she was able to arrange it through a home oxygen company. She was given a steroid taper, which she said made her feel wonderful, but she felt worse as soon as it was finished. She then saw her primary care physician recently, who prescribed more prednisone, and also prescribed an inhaler. However, the patient did not understand she was supposed to use the inhaler while she was still on the steroids, so she really did not use it. She presents today with worsening dyspnea, mainly with exertion. She says she really cannot even walk across the room. She was referred by her PCP to see our online content editor, Dr. Rossi, on February 14. Lately, she has felt chilled, but denies any fever. She has a chronic cough, but says only once every day or so will she cough up a small amount of cream- colored phlegm. She had one day where her throat felt a little sore. She says she only occasionally has headaches or slight dizziness. She denies orthopnea. She denies new eye or ear symptoms, dysphasia, chest pain or palpitations, abdominal pain, nausea or vomiting. She says she has had occasional loose stools over the last several weeks. She has some urinary hesitancy and incontinence, intermittently and chronically. She denies any significant leg edema. He has not noticed any swollen glands. ER evaluation showed a PO2 in the 50s. CT angiogram was negative for PE, but was markedly abnormal, with enlarged lymph nodes and various other findings consistent with possible sarcoid, possible interstitial lung disease, possible malignancy. BNP was mildly elevated at 350. Leukocyte count was elevated. EKG and troponin were negative. Ionized calcium is a bit low. February 02: The patient says she slept well last night., This morning, however, someone brought her a cup in case she could produce a sputum sample, and she got very upset and anxious. She says it reminded her that her aunt with emphysema. She says she definitely feels a lot better today, but if they take her high flow oxygen off for even a minute, her saturations dropped into the 60s. Any activity at all makes her feel quite short of breath. She has a mild cough which is minimally productive. She otherwise denies fever chills, headaches or dizziness, chest pain or palpitations, abdominal pain, nausea or vomiting or diarrhea, dysuria. February 03: Patient says she is breathing easier today. However, her O2 saturations still dropped dramatically if she gets out of bed for any reason, generally down into the 70s. She says she has a little more of a cough, but is still not productive. She is still quite concerned about trying to be out of the hospital before 06 February. Otherwise, she denies headaches, fever or chills, chest pain or palpitations, abdominal pain, nausea or vomiting, diarrhea or constipation or dysuria. February 04: The patient says she is breathing a bit easier this morning. We did decrease FiO2 down to 50% from 65%. However, she continues to drop her O2 saturations down into the 70s with minimal activity, and continues tachypneic. She is still hopeful that she can be discharged from the hospital before February 06. Otherwise, she denies fever or chills. She continues to have a cough, but cannot bring anything up. She denies chest pain or palpitations. She has had some loose stools, and is requesting medication for that. She denies nausea or vomiting. She still has a Dyson catheter, regarding significant respiratory distress if she has to get up and down out of bed often. - Constitutional Vitals: Vital Signs Temp Pulse Resp BP Pulse Ox 98.5 F 106 H 23 H 131/60 94 02/04/17 07:30 02/04/17 10:03 02/04/17 10:03 02/04/17 07:30 02/04/17 10:03 Period Temp Pulse Resp BP Sys/Angel Pulse Ox Last 24 Hr 96.9 F-99.0 F 94-107 20-32 119-137/58-83 90-97 Intake and Output 02/03/17 02/04/17 02/04/17 21:59 05:59 13:59 Intake Total 670 / 670 410 / 410 50 / 50 Output Total 225 / 225 950 / 950 Balance 445 / 445 -540 / -540 50 / 50 Weight 182 lb 12.8 oz Intake & Output: Intake & Output 02/03/17 02/04/17 02/04/17 21:59 05:59 13:59 Intake Total 670 / 670 410 / 410 50 / 50 Output Total 225 / 225 950 / 950 Balance 445 / 445 -540 / -540 50 / 50 Weight 182 lb 12.8 oz Intake: IV 50 / 50 50 / 50 50 / 50 Zosyn 3.375 gm In 50 / 50 50 / 50 50 / 50 Dextrose 5% in Water 50 ml @ 100 mls/hr IV Q6H SASCHA Rx#:[id number] Oral 620 / 620 360 / 360 Output: Urine Catheter Amount 950 / 950 Urine/Stool Mix 225 / 225 Other: # Bowel Movements 1 1 Current heart rate is 106, with respiratory rate of 23-28, blood pressure 131/60 , O2 saturation earlier was 97% with 50% FiO2. On exam, she is sitting up in a chair. She appears fatigued, and is tachypneic. Neck shows no obvious JVD. Cardiac exam shows regular rate and rhythm, with a tachycardic rate. Lungs: She has fairly decreased breath sounds throughout, but otherwise lungs appear clear. Abdomen is soft and nontender. Extremities show no edema. Medical - PN: Obj Da - Labs CBC & Chem 7: 02/04/17 04:13 02/04/17 04:13 Labs: Abnormal Lab Results 02/04/17 02/04/17 02/03/17 04:13 04:13 21:29 WBC Gran % 93.5 H Lymph % (Auto) 4.2 L Gran # 8.2 H Lymph # (Auto) 0.4 L Chloride Anion Gap BUN 35 H Glucose 172 H Magnesium Lactate Dehydrogenase 353 H Albumin 2.8 L Globulin Albumin/Globulin Ratio 0.8 L 25-OH Vitamin D Total Urine Glucose (UA) 50 A Urine Occult Blood 0.03 A Urine RBC 16 H Urine WBC 15 H 02/03/17 02/02/17 02/02/17 04:22 04:25 04:25 WBC 11.4 H Gran % 94.6 H Lymph % (Auto) 3.8 L Gran # 10.8 H Lymph # (Auto) 0.4 L Chloride Anion Gap BUN 38 H Glucose 148 H Magnesium 2.6 H Lactate Dehydrogenase 379 H Albumin 3.1 L Globulin Albumin/Globulin Ratio 0.9 L 25-OH Vitamin D Total 17.67 L Urine Glucose (UA) Urine Occult Blood Urine RBC Urine WBC 02/02/17 04:25 WBC Gran % Lymph % (Auto) Gran # Lymph # (Auto) Chloride 95 L Anion Gap 17.0 H BUN 25 H Glucose 186 H Magnesium Lactate Dehydrogenase 479 H Albumin Globulin 4.0 H Albumin/Globulin Ratio 0.8 L 25-OH Vitamin D Total Urine Glucose (UA) Urine Occult Blood Urine RBC Urine WBC February 04: Screen for C. difficile is negative. February 03: Chest x-ray shows moderately improved aeration and diffuse mixed interstitial/ alveolar infiltrates. February 02: Blood cultures are negative so far. MRSA screen is negative Vitamin D level is low at 17.67 Chest x-ray: Shows large diffuse mixed alveolar and interstitial infiltrates throughout both peripheral lungs, with slight progression compared to yesterday. February 01: CBC differential shows absolute neutrophil count of 14,800. Total white blood cell count 17,000 D-dimer is elevated at 3.7 Ionized calcium low at 1.02 BNP elevated at 354 Troponin less than 0.01 Pro-calcitonin is less than 0.05 CT angiogram of the chest: Severe centrilobular emphysema. Mild pulmonary hypertension. Extensive patchy groundglass alveolar disease throughout the lung peripheries. Consider atypical edema, sarcoid, opportunistic infection. Consider interstitial pneumonia. Markedly enlarged bilateral hilar paratracheal and pre-carinal lymph nodes, consistent with metastatic adenopathy , lymphoma, sarcoid, atypical infection. EKG shows sinus tachycardia at a rate of about 100. Without obvious acute ischemic changes. ABG on 5 L nasal cannula: PH 7.44, PCO2 37, PO2 50, bicarb 25, O2 saturation 84% Chest x-ray: Moderate diffuse interstitial and alveolar airspace disease throughout the periphery of both lungs, more prominent on the right. Meds: Medications Acetaminophen (Tylenol) 650 mg PO Q6HP PRN PRN Reason: PAIN/FEVER > 101 Last Admin: 02/03/17 10:39 Dose: 650 mg Hydrocodone Bitart/Acetaminophen ([place] 5/325mg) 1 tab PO Q4HP PRN PRN Reason: Pain Last Admin: 02/03/17 21:06 Dose: 1 tab Albuterol Sulfate (Ventolin) 2.5 mg NEB Q4HRT PRN PRN Reason: Shortness Of Breath Or Wheezing Albuterol/Ipratropium (Duoneb) 3 ml NEB Q6HRT [facility] Last Admin: 02/04/17 07:03 Dose: 3 ml Amlodipine Besylate (Norvasc) 5 mg PO DAILY [facility] Last Admin: 02/04/17 09:39 Dose: 5 mg Bupropion HCl (Wellbutrin Xl) 300 mg PO DAILY [facility] Last Admin: 02/04/17 09:40 Dose: 300 mg Calcium Carbonate/Glycine (Tums) 500 mg PO BID [facility] Last Admin: 02/04/17 09:40 Dose: 500 mg Diagnostic Test (Pha) (Accu-Chek) 1 each FS ACHS [facility] Last Admin: 02/04/17 07:31 Dose: 1 each Docusate Sodium (Colace) 100 mg PO BID PRN PRN Reason: Constipation Enoxaparin Sodium (Lovenox) 40 mg SQ DAILY [facility] Last Admin: 02/04/17 09:40 Dose: 40 mg Fluoxetine HCl (Prozac) 40 mg PO DAILY [facility] Last Admin: 02/04/17 09:40 Dose: 40 mg Piperacillin Sod/Tazobactam (Sod 3.375 gm/ Dextrose) 50 mls @ 100 mls/hr IV Q6H [facility] Last Infusion: 02/04/17 06:30 Dose: Infused Insulin Human Lispro (Humalog) 0 unit SQ ACHS [facility] PRN Reason: Protocol Last Admin: 02/04/17 08:23 Dose: 1 unit Lorazepam (Ativan) 0.5 mg IV Q4-6HP PRN PRN Reason: ANXIETY/SEDATION Last Admin: 02/04/17 09:34 Dose: 0.5 mg Magnesium Hydroxide (Milk Of Magnesia) 30 ml PO DAILYP PRN PRN Reason: Constipation Methylprednisolone Sodium Succinate (Solu-Medrol) 80 mg IV Q8 [facility] Last Admin: 02/04/17 05:32 Dose: 80 mg Naloxone HCl (Narcan) 0.1 mg IV Q2MIN PRN PRN Reason: Opiate Reversal Ondansetron HCl (Zofran) 4 mg IV Q4HP PRN PRN Reason: Nausea And Vomiting Simvastatin (Zocor) 20 mg PO HS [facility] Last Admin: 02/03/17 21:06 Dose: 20 mg Sodium Chloride (Saline Flush) 10 ml IV Q8 [facility] Last Admin: 02/04/17 09:41 Dose: 10 ml Vitamin D (Vitamin D3) 5,000 unit PO DAILY [facility] Last Admin: 02/04/17 09:39 Dose: 5,000 unit Medical - PN: A/P - Time Spent With Patient Total time spent is greater than 50% in coordination of care (as documented) at patient's floor/unit and/or counseling patient: 25 - 35 minutes (1) Acute and chronic respiratory failure ([id number]) Status: Acute Current Visit: Yes (2) Hypocalcemia Status: Acute Current Visit: Yes (3) Other specified interstitial pulmonary diseases Status: Chronic Current Visit: No (4) Hypertension Status: Chronic Current Visit: No (5) Acute exacerbation of chronic obstructive pulmonary disease (COPD) Status: Acute Current Visit: No (6) Hypoxia Status: Chronic Current Visit: No - Narrative A/P Narrative: #1. Pulmonary. This patient presents with significant hypoxia, and very abnormal chest CT, with a wide differential diagnosis. She also has significant leukocytosis, which may be due to the oral steroids she has been taking lately.. She may have an interstitial pneumonia, superimposed on severe chronic emphysema. However she also has lymphadenopathy, and other abnormal lung findings, consistent with possible sarcoid disease, malignancy, interstitial lung diseases. She remains quite hypoxic. However, she does seem to feel quite a bit better than yesterday. For today, we will continue with IV Zithromax and Zosyn, IV steroids, bronchodilators and pulmonary toilet. -Her ability to maintain O2 saturations has improved since yesterday, but she still seems to be working hard. She did not like the BiPAP mask on admission, but we talked to her today about the fact that it might help her to rest a bit, which might improve how quickly she gets well enough to go home. She did agree to another trial of BiPAP, and as of my last check in with the nurses, they had weaned her FiO2 down to about 40%, and she was resting well. -As needed Ativan is ordered for anxiety/claustrophobia. If her oxygen requirements increase much, though, we may want to send her to a different facility that has access to acute specialist. -She will need pulmonary evaluation, and already has an appointment set up for February 14, with Dr. Rossi.. -The patient also reports that 1 of her providers is concerned about the possibility of sleep apnea. 2. Cardiac. Mildly elevated BNP. Patient was given Lasix in the ER, but I do not think she has significant CHF. Of course, she does have increased cardiac risk. Echocardiogram was performed, and results are pending. 3. Endocrine. -Hypocalcemia. Improved. Vitamin D level is quite low. We will replace both vitamin D and calcium, and follow. Calcium is somewhat improved today. -Hyperglycemia. History of glucose intolerance, now aggravated by steroids. Glucoses are ranging 162- 216 today. Continue sliding scale. 4. Past history of significant tobacco abuse. 5. CODE STATUS: Full code, but no long-term life support. 6. DVT prophylaxis: Subcu Lovenox. 7. Obesity. This is likely impacting her dyspnea as well. #8. History of depression. The patient notes she has had depression since the of her father and 2 children within the last few years. Continue current medications. Hopefully, she has psychiatric follow-up, as it is a little unusual to used two SSRI medications without other meds. 9. Hyperlipidemia. Continue simvastatin. 10. Hypertension. Controlled. Continue Dyazide and Norvasc. #11. GI. Patient is reporting loose stools. C. difficile screen is negative. I will add as needed Imodium. Approximately 35 minutes was spent today, reviewing test results, interviewing and examining the patient, reviewing plan of care with nursing staff, and writing orders. Medical - PN: Qual - VTE Deep Vein Thrombosis/Pulmonary Embolism Present on Admission: No
[2017-02-04] MEDS: HYDROcodone/APAP 5/325MG TABLET PO PRN ×2 (20:09→23:54)
[2017-02-04] MEDS: LOPERAMIDE 2 MG CAPSULE PO PRN (20:09)
[2017-02-04] MEDS: SIMVASTATIN 20 MG TABLET PO SCH (20:10)
[2017-02-05] MEDS: IPRATROPIUM/ALBUTEROL 3 ML AMPUL.NEB NEB SCH ×4 (02:01→19:12)
[2017-02-05 05:41] LABS: Basophils # (Auto) 0 K/mcL (0.0-0.3); Basophils % (Auto) 0 % (0.0-2.0); Eosinophils # (Auto) 0 K/mcL (0.0-0.7); Eosinophils % (Auto) 0.2 % (0.0-7.0); Granulocytes % (Auto) 92.8 % (38.0-78.0); Lymphocytes # (Auto) 0.4 K/mcL (1.5-4.8); Mean Cell Volume 90.7 fL (80.0-100.0); Mean Corpuscular HGB Conc 33.2 g/dL (31.0-36.0); Mean Corpuscular Hemoglobin 30.1 pg (26.0-34.0); Monocytes # (Auto) 0.2 K/mcL (0.1-0.9); Platelet Count 312 K/mcL (140-440); RBC 4.54 M/mcL (4.00-5.20); Red Cell Distribution Width 13.4 % (11.5-14.5)
[2017-02-05] MEDS: PIPERACILLIN SODIUM/TAZOBACTAM 3.375 GM in DEXTROSE 5% IN WATER 50 ML IV SCH ×4 (05:52→23:26)
[2017-02-05] MEDS: 0.9 % SODIUM CHLORIDE 10 ML SYRINGE IV SCH ×8 (06:00→22:09)
[2017-02-05] MEDS: methylPREDNISolone SOD SUCC 125 MG/2 ML VIAL IV SCH ×3 (06:01→22:08)
[2017-02-05 06:05] LABS: ALT/SGPT 16 U/l (0-40); Albumin 2.8 gm/dL (3.2-5.2); Albumin/Globulin Ratio 0.9 (1.0-2.3); Alkaline Phosphatase 74 U/L (39-117); Bilirubin,Direct < 0.2 mg/dL (0.0-0.3); Blood Urea Nitrogen 29 mg/dl (8-23); Gamma Glutamyl Transpeptidase 14 U/L (5-36); Magnesium 2.5 mg/dL (1.6-2.5); Uric Acid 2.5 mg/dL (2.5-8.0)
[2017-02-05] MEDS: LORazepam 2 MG/ML VIAL IV PRN ×2 (08:30→21:00)
[2017-02-05] MEDS: VITAMIN D3 5,000 UNIT CAPSULE PO SCH (08:31)
[2017-02-05] MEDS: LOPERAMIDE 2 MG CAPSULE PO PRN (08:31)
[2017-02-05] MEDS: FLUoxetine HCL 20 MG CAPSULE PO SCH (08:31)
[2017-02-05] MEDS: CALCIUM CARBONATE 500 MG TAB.CHEW PO SCH ×2 (08:32→20:47)
[2017-02-05] MEDS: buPROPion 150 MG TAB.XL.24H PO SCH (08:32)
[2017-02-05] MEDS: amLODIPine 5 MG TABLET PO SCH (08:32)
[2017-02-05] MEDS: INSULIN LISPRO 1 UNIT/0.01 ML UNIT SQ SCH ×4 (08:33→20:47)
[2017-02-05] MEDS: ENOXAPARIN 40 MG/0.4 ML SYRINGE SQ SCH (08:33)
[2017-02-05] MEDS ORDERED: FUROSEMIDE 40 MG/4 ML VIAL IV ONE (10:31)
[2017-02-05] MEDS: ACETAMINOPHEN 325 MG TABLET PO PRN (13:56)
--- NOTE | 2017-02-05 16:19 | Internal Med Progress Note ---
Medical - PN: Subj Patient information: Note initiated : 02/05/17 at 4:17 pm Service Date, if different from initiated Date: [] Patient: Sommer Alvarez 71 y/o F admitted on 02/01/17 for SOB/Respiratory Failure, Hypocalcemia. Chief Complaint: [] Interval history: February 01, 2017: History of present illness: Ms. Alvarez is a 71 year old woman who has a greater than [id number]-ojyk smoking history. She says she began to notice mild dyspnea with exertion approximately 10 years ago. However, she has been quite stable until a few weeks ago. A few weeks ago she began to notice significant dyspnea with minor activity. She was seen in an emergency room out of town about 2 weeks ago, and told that she was hypoxic. They told her they could not prescribe home O2 because it would not be paid for, but then she was able to arrange it through a home oxygen company. She was given a steroid taper, which she said made her feel wonderful, but she felt worse as soon as it was finished. She then saw her primary care physician recently, who prescribed more prednisone, and also prescribed an inhaler. However, the patient did not understand she was supposed to use the inhaler while she was still on the steroids, so she really did not use it. She presents today with worsening dyspnea, mainly with exertion. She says she really cannot even walk across the room. She was referred by her PCP to see our licensed club manager, Dr. Rossi, on February 14. Lately, she has felt chilled, but denies any fever. She has a chronic cough, but says only once every day or so will she cough up a small amount of cream- colored phlegm. She had one day where her throat felt a little sore. She says she only occasionally has headaches or slight dizziness. She denies orthopnea. She denies new eye or ear symptoms, dysphasia, chest pain or palpitations, abdominal pain, nausea or vomiting. She says she has had occasional loose stools over the last several weeks. She has some urinary hesitancy and incontinence, intermittently and chronically. She denies any significant leg edema. He has not noticed any swollen glands. ER evaluation showed a PO2 in the 50s. CT angiogram was negative for PE, but was markedly abnormal, with enlarged lymph nodes and various other findings consistent with possible sarcoid, possible interstitial lung disease, possible malignancy. BNP was mildly elevated at 350. Leukocyte count was elevated. EKG and troponin were negative. Ionized calcium is a bit low. February 02: The patient says she slept well last night., This morning, however, someone brought her a cup in case she could produce a sputum sample, and she got very upset and anxious. She says it reminded her that her aunt with emphysema. She says she definitely feels a lot better today, but if they take her high flow oxygen off for even a minute, her saturations dropped into the 60s. Any activity at all makes her feel quite short of breath. She has a mild cough which is minimally productive. She otherwise denies fever chills, headaches or dizziness, chest pain or palpitations, abdominal pain, nausea or vomiting or diarrhea, dysuria. February 03: Patient says she is breathing easier today. However, her O2 saturations still dropped dramatically if she gets out of bed for any reason, generally down into the 70s. She says she has a little more of a cough, but is still not productive. She is still quite concerned about trying to be out of the hospital before 06 February. Otherwise, she denies headaches, fever or chills, chest pain or palpitations, abdominal pain, nausea or vomiting, diarrhea or constipation or dysuria. February 04: The patient says she is breathing a bit easier this morning. We did decrease FiO2 down to 50% from 65%. However, she continues to drop her O2 saturations down into the 70s with minimal activity, and continues tachypneic. She is still hopeful that she can be discharged from the hospital before February 06. Otherwise, she denies fever or chills. She continues to have a cough, but cannot bring anything up. She denies chest pain or palpitations. She has had some loose stools, and is requesting medication for that. She denies nausea or vomiting. She still has a Dyson catheter, regarding significant respiratory distress if she has to get up and down out of bed often. February 05: Patient seen examined, no acute overnight events, patient still on hiflo NC with 12-14 L oxygen, bipap was tolerated well as per Nurse. patient subjectively feels much better but we are unable to wean her off the oxygen. She will likely need pulmonary evaluation sooner rather than later. discussed with the patient that if she does not improve we will have to consider transfer to higher center for further evaluation. Pt verbalized understanding. Pertinent ROS: Denies headache, dizziness Denies chest pain, palpitations Dry cough present, Sob improving. Denies abdominal pain, nausea or vomiting. - Constitutional Vitals: Vital Signs Temp Pulse Resp BP Pulse Ox 97.4 F 102 H 28 H 136/69 93 02/05/17 15:55 02/05/17 15:55 02/05/17 15:55 02/05/17 15:55 02/05/17 15:55 Period Temp Pulse Resp BP Sys/Angel Pulse Ox Last 24 Hr 97.4 F-98.1 F 93-106 16-32 135-149/68-87 89-93 Intake and Output 02/05/17 02/05/17 02/05/17 05:59 13:59 21:59 Intake Total 50 / 50 480 / 480 960 / 960 Output Total 550 / 550 1750 / 1750 450 / 450 Balance -500 / -500 -1270 / -1270 510 / 510 Intake & Output: Intake & Output 02/05/17 02/05/17 02/05/17 05:59 13:59 21:59 Intake Total 50 / 50 480 / 480 960 / 960 Output Total 550 / 550 1750 / 1750 450 / 450 Balance -500 / -500 -1270 / -1270 510 / 510 Intake: IV 50 / 50 100 / 100 Zosyn 3.375 gm In 50 / 50 100 / 100 Dextrose 5% in Water 50 ml @ 100 mls/hr IV Q6H [facility] Rx#:[id number] Oral 200 / 200 600 / 600 GI Tube Flush 180 / 180 360 / 360 Output: Urine Catheter Amount 550 / 550 1750 / 1750 450 / 450 Other: Meal Breakfast Lunch Percent of Meal Consumed 100% 75% Feeding Ability Independent Independent # Bowel Movements 1 Exam: Constitutional; Afebrile, cooperative, alert, not in distress. Eyes- No icterus, , No periorbital swelling Ears- Ext ear normal, hearing normal to conversation. Neck- Midline trachea, supple Respiratory system: Air Entry equal but dimished on both sides, basilar crackles, no wheezing noted. CVS- Rate rhythm regular, S1,S2 heard, no gallop, no rub. Abdomen- Soft nontender abdomen, no organomegaly, no tenderness, no guarding or rigidity, SCRAP PREPARATION SUPERVISOR- AOOx3, moving all extremities, no gross focal deficit noted. Medical - PN: Obj Da - Labs CBC & Chem 7: 02/05/17 04:10 02/05/17 04:10 Labs: Abnormal Lab Results 02/05/17 02/05/17 02/04/17 04:10 04:10 04:13 Gran % 92.8 H 93.5 H Lymph % (Auto) 5.0 L 4.2 L Gran # 8.2 H Lymph # (Auto) 0.4 L 0.4 L BUN 29 H Glucose 155 H Magnesium Lactate Dehydrogenase 327 H Albumin 2.8 L Albumin/Globulin Ratio 0.9 L Urine Glucose (UA) Urine Occult Blood Urine RBC Urine WBC 02/04/17 02/03/17 02/03/17 04:13 21:29 04:22 Gran % Lymph % (Auto) Gran # Lymph # (Auto) BUN 35 H 38 H Glucose 172 H 148 H Magnesium 2.6 H Lactate Dehydrogenase 353 H 379 H Albumin 2.8 L 3.1 L Albumin/Globulin Ratio 0.8 L 0.9 L Urine Glucose (UA) 50 A Urine Occult Blood 0.03 A Urine RBC 16 H Urine WBC 15 H Meds: Medications Acetaminophen (Tylenol) 650 mg PO Q6HP PRN PRN Reason: PAIN/FEVER > 101 Last Admin: 02/05/17 13:56 Dose: 650 mg Hydrocodone Bitart/Acetaminophen ([place] 5/325mg) 1 tab PO Q4HP PRN PRN Reason: Pain Last Admin: 02/04/17 23:54 Dose: 1 tab Albuterol Sulfate (Ventolin) 2.5 mg NEB Q4HRT PRN PRN Reason: Shortness Of Breath Or Wheezing Last Admin: 02/04/17 19:45 Dose: 2.5 mg Albuterol/Ipratropium (Duoneb) 3 ml NEB Q6HRT SASCHA Last Admin: 02/05/17 12:47 Dose: 3 ml Amlodipine Besylate (Norvasc) 5 mg PO DAILY [facility] Last Admin: 02/05/17 08:32 Dose: 5 mg Bupropion HCl (Wellbutrin Xl) 300 mg PO DAILY [facility] Last Admin: 02/05/17 08:32 Dose: 300 mg Calcium Carbonate/Glycine (Tums) 500 mg PO BID [facility] Last Admin: 02/05/17 08:32 Dose: 500 mg Diagnostic Test (Pha) (Accu-Chek) 1 each FS ACHS [facility] Last Admin: 02/05/17 12:36 Dose: 1 each Docusate Sodium (Colace) 100 mg PO BID PRN PRN Reason: Constipation Enoxaparin Sodium (Lovenox) 40 mg SQ DAILY [facility] Last Admin: 02/05/17 08:33 Dose: 40 mg Fluoxetine HCl (Prozac) 40 mg PO DAILY [facility] Last Admin: 02/05/17 08:31 Dose: 40 mg Piperacillin Sod/Tazobactam (Sod 3.375 gm/ Dextrose) 50 mls @ 100 mls/hr IV Q6H [facility] Last Infusion: 02/05/17 13:09 Dose: Infused Insulin Human Lispro (Humalog) 0 unit SQ ACHS [facility] PRN Reason: Protocol Last Admin: 02/05/17 13:08 Dose: 3 unit Loperamide HCl (Imodium) 2 mg PO PRN PRN PRN Reason: Diarrhea Last Admin: 02/05/17 08:31 Dose: 2 mg Lorazepam (Ativan) 0.5 mg IV Q4-6HP PRN PRN Reason: ANXIETY/SEDATION Last Admin: 02/05/17 08:30 Dose: 0.5 mg Magnesium Hydroxide (Milk Of Magnesia) 30 ml PO DAILYP PRN PRN Reason: Constipation Methylprednisolone Sodium Succinate (Solu-Medrol) 80 mg IV Q8 [facility] Last Admin: 02/05/17 13:57 Dose: 80 mg Naloxone HCl (Narcan) 0.1 mg IV Q2MIN PRN PRN Reason: Opiate Reversal Ondansetron HCl (Zofran) 4 mg IV Q4HP PRN PRN Reason: Nausea And Vomiting Simvastatin (Zocor) 20 mg PO HS [facility] Last Admin: 02/04/17 20:10 Dose: 20 mg Sodium Chloride (Saline Flush) 10 ml IV Q8 [facility] Last Admin: 02/05/17 13:57 Dose: 10 ml Vitamin D (Vitamin D3) 5,000 unit PO DAILY [facility] Last Admin: 02/05/17 08:31 Dose: 5,000 unit Medical - PN: A/P - Time Spent With Patient Total time spent is greater than 50% in coordination of care (as documented) at patient's floor/unit and/or counseling patient: - Narrative A/P Narrative: a/p Acute on Chr hypoxic Resp failure: On 12-14L hiflo NC, due to severe emphysema, and secondary process, infection vs maligancy process. Pneumonia: s/p 3 days of zithromax, on IV zosyn, clinically pt feels better, but still has high oxygen requirements. Add levofloxacin, Try to send sputum culture, fungal cx, Try sputum induction. If no improvement by tomorrow, will call [facility] for possible transfer Severe Emphysema: on steroids and duonebs, continue same. HLD on statin Diarrhea, cdiff neg, on imodium prn CHF: elevated bnp, clijnically not very dry, Trial of lasix 1 dose to see if any improvement, if no improvement in Fio2 then will consider X sarah to higher center. Full code HTN Bp well controlled, continue present regime. . Medical - PN: Qual - VTE Deep Vein Thrombosis/Pulmonary Embolism Present on Admission: No
[2017-02-05] MEDS ORDERED: LEVOFLOXACIN 500 MG/100 ML BAG IV SCH (16:30)
[2017-02-05] MEDS ORDERED: LEVOFLOXACIN 500 MG/100 ML BAG IV ONE (17:50)
[2017-02-05] MEDS: SIMVASTATIN 20 MG TABLET PO SCH (20:47)
[2017-02-06] MEDS: IPRATROPIUM/ALBUTEROL 3 ML AMPUL.NEB NEB SCH ×2 (01:05→07:49)
[2017-02-06] MEDS: LOPERAMIDE 2 MG CAPSULE PO PRN ×2 (04:51→10:33)
[2017-02-06] MEDS: methylPREDNISolone SOD SUCC 125 MG/2 ML VIAL IV SCH (05:25)
[2017-02-06] MEDS: PIPERACILLIN SODIUM/TAZOBACTAM 3.375 GM in DEXTROSE 5% IN WATER 50 ML IV SCH ×2 (05:26→11:56)
[2017-02-06] MEDS: 0.9 % SODIUM CHLORIDE 10 ML SYRINGE IV SCH ×4 (05:26→11:56)
[2017-02-06 07:24] LABS: Basophils # (Auto) 0 K/mcL (0.0-0.3); Basophils % (Auto) 0 % (0.0-2.0); Eosinophils # (Auto) 0 K/mcL (0.0-0.7); Eosinophils % (Auto) 0.3 % (0.0-7.0); Granulocytes % (Auto) 91.6 % (38.0-78.0); Lymphocytes # (Auto) 0.4 K/mcL (1.5-4.8); Lymphocytes % (Auto) 5.7 % (15.5-49.0); Mean Cell Volume 90.4 fL (80.0-100.0); Mean Corpuscular HGB Conc 33.1 g/dL (31.0-36.0); Mean Corpuscular Hemoglobin 29.9 pg (26.0-34.0); Monocytes # (Auto) 0.2 K/mcL (0.1-0.9); Monocytes % (Auto) 2.4 % (1.0-12.0); Platelet Count 286 K/mcL (140-440); RBC 4.65 M/mcL (4.00-5.20); Red Cell Distribution Width 13.6 % (11.5-14.5)
[2017-02-06 07:42] LABS: ALT/SGPT 18 U/l (0-40); Albumin 2.9 gm/dL (3.2-5.2); Alkaline Phosphatase 70 U/L (39-117); Bilirubin,Direct < 0.2 mg/dL (0.0-0.3); Blood Urea Nitrogen 27 mg/dl (8-23); Gamma Glutamyl Transpeptidase 18 U/L (5-36); Magnesium 2.4 mg/dL (1.6-2.5); Uric Acid 2.7 mg/dL (2.5-8.0)
[2017-02-06] MEDS: INSULIN LISPRO 1 UNIT/0.01 ML UNIT SQ SCH ×2 (07:48→11:55)
[2017-02-06] MEDS ORDERED: FUROSEMIDE 20 MG/2 ML VIAL IV ONE (08:08)
[2017-02-06] MEDS ORDERED: LEVOFLOXACIN 500 MG/100 ML BAG IV SCH (09:00)
[2017-02-06] MEDS: buPROPion 150 MG TAB.XL.24H PO SCH (09:07)
[2017-02-06] MEDS: amLODIPine 5 MG TABLET PO SCH (09:07)
[2017-02-06] MEDS: CALCIUM CARBONATE 500 MG TAB.CHEW PO SCH (09:07)
[2017-02-06] MEDS: FLUoxetine HCL 20 MG CAPSULE PO SCH (09:07)
[2017-02-06] MEDS: ENOXAPARIN 40 MG/0.4 ML SYRINGE SQ SCH (09:08)
--- NOTE | 2017-02-06 09:09 | XRay Report ---
CLINICAL INFORMATION: Dyspnea. Interstitial lung disease and probable sarcoidosis TECHNIQUE: Upright PA and lateral chest x-ray COMPARISON: Previous chest x-rays dated 02/03/2017, 02/02/2017, 02/01/2017, 01/15/2017. Previous chest CT scan dated 02/01/2017 FINDINGS: Diffuse pulmonary parenchymal abnormality with interstitial infiltrates. No new focal pulmonary parenchymal consolidation. Yoon remain enlarged. Bilateral hilar adenopathy is demonstrated on previous CT scan. Overall appearance is stable. No change in heart size. No evidence for congestive heart failure. No pleural effusion. IMPRESSION: 1. Severe bilateral diffuse lung disease and hilar enlargement 2. No significant interval change. No new abnormalities. Interpreted and Authenticated by: Jake Foley 02/06/17
[2017-02-06] MEDS: VITAMIN D3 5,000 UNIT CAPSULE PO SCH (09:10)
[2017-02-06] MEDS: LORazepam 2 MG/ML VIAL IV PRN (10:33)
[2017-02-06] MEDS ORDERED: IPRATROPIUM/ALBUTEROL 3 ML AMPUL.NEB NEB PRN (10:35)
--- NOTE | 2017-02-06 12:32 | Transfer Summary ---
Transfer Discharge Sum: Prov Patient information: Note initiated : 02/06/17 at 12:20 pm Service Date, if different from initiated Date: [] Patient: Sommer Alvarez 71 y/o F admitted on 02/01/17 for SOB/Respiratory Failure, Hypocalcemia. Chief Complaint: [] Date of admission: 02/01/17 10:11 Discharge Date: 02/06/17 Primary care physician: Nuzhat Husain Admitting clinician: Clarissa Gardner Discharging clinician: Jose Greenfield Receiving physician/facility: Dr Chandrakant Clayton - School Age Lead Teacher. Dr Tray Barber.- Internal Medicine Hospitalist. Transfer Discharge Sum: Diag - Discharge Diagnosis (1) Acute and chronic respiratory failure ([id number]) Status: Acute Transfer Discharge Sum: Med - Medications Active and Home Medications: Home Medications albuterol sulfate HFA 90 mcg/actuation aerosol inhaler 1 puff INHALATION Q6H [History Confirmed 02/02/17] amlodipine 5 mg tablet 5 mg PO QDAY 01/22/17 [History Confirmed 02/02/17] budesonide-formoterol HFA 160 mcg-4.5 mcg/actuation aerosol inhaler 2 inh INHALATION BID 01/22/17 [History Confirmed 02/02/17] bupropion HCl XL 300 mg 24 hr tablet, extended release 300 mg PO QDAY tab 01/22 [History Confirmed 02/02/17] fluoxetine 40 mg capsule 40 mg PO QDAY 01/22/17 [History Confirmed 02/02/17] simvastatin 20 mg tablet 20 mg PO QHS tab 01/22/17 [History Confirmed 02/02/17] triamterene 37.5 mg-hydrochlorothiazide 25 mg tablet 1 tab-cap PO QDAY 01/22/17 [History Confirmed 02/02/17] Naproxen (Pp) [Aleve (Pp)] 220 mg PO PRN PRN 02/02/17 [History Confirmed ] Omeprazole 20 mg PO PRN PRN 02/02/17 [History Confirmed 02/02/17] Active Medications Acetaminophen (Tylenol) 650 mg PO Q6HP PRN PRN Reason: PAIN/FEVER > 101 Last Admin: 02/05/17 13:56 Dose: 650 mg Hydrocodone Bitart/Acetaminophen ([place] 5/325mg) 1 tab PO Q4HP PRN PRN Reason: Pain Last Admin: 02/04/17 23:54 Dose: 1 tab Albuterol Sulfate (Ventolin) 2.5 mg NEB Q4HRT PRN PRN Reason: Shortness Of Breath Or Wheezing Last Admin: 02/04/17 19:45 Dose: 2.5 mg Albuterol/Ipratropium (Duoneb) 3 ml NEB Q6HRT [facility] Last Admin: 02/06/17 07:49 Dose: 3 ml Albuterol/Ipratropium (Duoneb) 3 ml NEB Q4HP PRN PRN Reason: Shortness Of Breath Amlodipine Besylate (Norvasc) 5 mg PO DAILY [facility] Last Admin: 02/06/17 09:07 Dose: 5 mg Bupropion HCl (Wellbutrin Xl) 300 mg PO DAILY [facility] Last Admin: 02/06/17 09:07 Dose: 300 mg Calcium Carbonate/Glycine (Tums) 500 mg PO BID [facility] Last Admin: 02/06/17 09:07 Dose: 500 mg Diagnostic Test (Pha) (Accu-Chek) 1 each FS ACHS [facility] Last Admin: 02/06/17 11:45 Dose: 1 each Docusate Sodium (Colace) 100 mg PO BID PRN PRN Reason: Constipation Enoxaparin Sodium (Lovenox) 40 mg SQ DAILY [facility] Last Admin: 02/06/17 09:08 Dose: 40 mg Fluoxetine HCl (Prozac) 40 mg PO DAILY [facility] Last Admin: 02/06/17 09:07 Dose: 40 mg Piperacillin Sod/Tazobactam (Sod 3.375 gm/ Dextrose) 50 mls @ 100 mls/hr IV Q6H [facility] Last Admin: 02/06/17 11:56 Dose: 100 mls/hr Levofloxacin (Levaquin) 500 mg in 100 mls @ 100 mls/hr IV DAILY [facility] Last Infusion: 02/06/17 10:20 Dose: Infused Insulin Human Lispro (Humalog) 0 unit SQ ACHS [facility] PRN Reason: Protocol Last Admin: 02/06/17 11:55 Dose: 4 unit Loperamide HCl (Imodium) 2 mg PO PRN PRN PRN Reason: Diarrhea Last Admin: 02/06/17 10:33 Dose: 2 mg Lorazepam (Ativan) 0.5 mg IV Q4-6HP PRN PRN Reason: ANXIETY/SEDATION Last Admin: 02/06/17 10:33 Dose: 0.5 mg Magnesium Hydroxide (Milk Of Magnesia) 30 ml PO DAILYP PRN PRN Reason: Constipation Methylprednisolone Sodium Succinate (Solu-Medrol) 80 mg IV Q8 [facility] Last Admin: 02/06/17 05:25 Dose: 80 mg Naloxone HCl (Narcan) 0.1 mg IV Q2MIN PRN PRN Reason: Opiate Reversal Ondansetron HCl (Zofran) 4 mg IV Q4HP PRN PRN Reason: Nausea And Vomiting Simvastatin (Zocor) 20 mg PO HS [facility] Last Admin: 02/05/17 20:47 Dose: 20 mg Sodium Chloride (Saline Flush) 10 ml IV Q8 [facility] Last Admin: 02/06/17 11:56 Dose: 10 ml Vitamin D (Vitamin D3) 5,000 unit PO DAILY [facility] Last Admin: 02/06/17 09:10 Dose: 5,000 unit Transfer Discharge Sum: Hosp Hospital course: Ms. Alvarez is a 71 year old woman who has a greater than 29-[id number]-[id number] smoking history. She says she began to notice mild dyspnea with exertion approximately 5-10 years ago. However, she has been quite stable until a few weeks ago. A few weeks ago she began to notice significant dyspnea with minor activity. She was seen in an emergency room out of town about 2 weeks ago, She was treated there for COPD exacerbation, She was placed on oxygen at that time.. She was given a steroid taper, which she said made her feel wonderful, but she felt worse as soon as it was finished. She then saw her primary care physician recently, who prescribed more prednisone, and also prescribed an inhaler. However, the patient did not understand she was supposed to use the inhaler while she was still on the steroids, so she really did not use it. She presented on 02/01 with worsening dyspnea, mainly with exertion. She says she really cannot even walk across the room. ER evaluation showed a PO2 in the 50s. CT angiogram was negative for PE, but was markedly abnormal, with enlarged lymph nodes and various other findings consistent with possible sarcoid , possible interstitial lung disease, possible malignancy Fungal disease, mycobacterial disease, viral PCP pna etc. BNP was mildly elevated at 350. Leukocyte count was elevated at 17K, EKG and troponin were negative. The patient was admitted to the hospital for Acute on Chr resp failure due to Acute COPD exacerbation and possible PNA. COPD exacerbation/ respiratory failure : Treated with IV steroids, still on steroids, duonebs and antibiotics, the patient received azithromycin 500mg x 3 days, and IV zosyn for 5 days. (still on zosyn) Levoquin was started yesterday. The patient subjectively improved significantly but still continued to require oxygen. She was on on 50L of high flow nasal canula, to maintain her oxygen levels, with present treatment this was weaned down to 10L oxygen. The patient desaturates still on minimal activity. The patients microbiology is negative. Sputum could not be induced to evaluate for sputum cx, fungal cx or PCP pneumonia. Patient had mild elevation of bnp, but clinically is not volume overloaded. The patient was given some lasix with no significant improvement in pulmonary function. We do not have pulmonary at this facility, and discussion was held with the patient and her POA with regards to transfer to higher center for possible Bronchoscopy, BAL culture and Bronchoscopy guided biopsy of the Mediastinal LN to evaluate for possible malignancy. Case was discussed at [facility] with Wireworker Supervisor and Hospitalist who accepted the patient for transfer. - Time Spent with Patient Total time spent providing and/or coordinating transfer services: Greater than 30 minutes Transfer Discharge Sum: Exam - Constitutional Vitals: Vital Signs Temp Pulse Pulse Resp BP BP Pulse Ox 02/06/17 07:51 99 H 20 02/06/17 06:51 98.3 F 24 H 140/84 91 02/06/17 06:45 91 02/06/17 03:53 97.8 F 22 139/81 94 02/06/17 01:10 85 24 H 96 02/05/17 23:46 97.6 F 26 H 139/82 02/05/17 23:15 88 29 H 92 02/05/17 21:30 95 H 28 H 90 02/05/17 20:00 97.3 F 24 H 131/70 94 02/05/17 19:18 94 H 22 02/05/17 19:12 96 H 23 H 93 02/05/17 18:38 30 H 90 02/05/17 18:00 26 H 93 02/05/17 15:57 136/69 92 02/05/17 15:55 97.4 F 102 H 28 H 136/69 93 07/03/17 14:00 28 H 90 02/05/17 12:48 97 H 18 02/05/17 12:43 135/68 94 02/05/17 12:36 98.1 F 102 H 26 H 135/68 92 Intake and Output 02/05/17 02/06/17 02/06/17 21:59 05:59 13:59 Intake Total 1400 / 1400 270 / 270 400 / 400 Output Total 450 / 450 575 / 575 850 / 850 Balance 950 / 950 -305 / -305 -450 / -450 Intake: IV 50 / 50 50 / 50 150 / 150 Zosyn 3.375 gm In 50 / 50 50 / 50 50 / 50 Dextrose 5% in Water 50 ml @ 100 mls/hr IV Q6H [facility] Rx#:[id number] Oral 840 / 840 220 / 220 250 / 250 GI Tube Flush 360 / 360 IV - Manual Only 150 / 150 Output: Urine Catheter Amount 450 / 450 575 / 575 850 / 850 Other: Meal Dinner Breakfast Percent of Meal Consumed 100% 100% Feeding Ability Independent Independent # Bowel Movements 1 # of times incontinent of 1 Bowels Weight 184 lb 11.958 oz Additional comments: Constitutional; Afebrile, cooperative, alert, not in distress. Eyes- No icterus, , No periorbital swelling Ears- Ext ear normal, hearing normal to conversation. Neck- Midline trachea, supple Respiratory system: Air Entry equal on both sides, No crackles or wheezing, no rhonchi. CVS- Rate rhythm regular, S1,S2 heard, no gallop, no rub. Abdomen- Soft nontender abdomen, no organomegaly, no tenderness, no guarding or rigidity, RAIL EQUIPMENT OPERATOR- AOOx3, moving all extremities, no gross focal deficit noted. Transfer Discharge Sum: Data Procedures and tests throughout hospitalization: FINDINGS: The heart is mildly enlarged. Mild enlargement of the claus and right lower trachea suggests adenopathy. The pulmonary arteries are mildly distended. There is moderate mixed interstitial/alveolar airspace disease in the periphery of both lungs more prominent on the right. No effusions IMPRESSION: 1. Moderate diffuse mixed interstitial/alveolar airspace disease throughout the periphery of both lungs - more prominent in the right. It has progressed to the plain film two weeks prior. 2. Underlying emphysema. Follow-up CT to be performed IMPRESSION: 1. Severe centrilobular and periseptal emphysema changes. Mild enlargement of the central pulmonary arteries is compatible with pulmonary hypertension 2. Extensive patchy mixed groundglass alveolar/interstitial airspace disease throughout the periphery of both lungs. The differential diagnosis is extensive: Atypical edema from prior CHF, Sarcoidosis (particularly in light of bihilar adenopathy) , opportunistic infection (PCP, cytomegalovirus, RSV etc.) chronic noninfectious inflammatory disease (eosinophillic pneumonia, other idiopathic interstitial pneumonias, drug toxicity or hypersensitivity pneumonitis). 3. Markedly enlarged bilateral hilar, right paratracheal and precarinal lymph nodes. This may represent metastatic adenopathy from lung carcinoma such as small cell (a 17 mm pleural-based mass in the lateral right lung apex which may represent a primary lung carcinoma]. Alternatively, the possibility of lymphoma, sarcoidosis or atypical infection (TB, fungal, viral etc.) should be entertained. Consider pulmonary referral for transbronchial biopsy of one of the lymph nodes IMPRESSION: 1. Severe bilateral diffuse lung disease and hilar enlargement 2. No significant interval change. No new abnormalities. Interpreted and Authenticated by: Jake Foley 02/06/17 Echo done verbally reported as normal lvef, Pending Orders Transfer Discharge Sum: A/P - Problem Maintenance (1) Acute and chronic respiratory failure ([id number]) Status: Acute - Plan Overall status at transfer: patient is not back to baseline Disposition: [facility] Quality Measure Queries - VTE Deep Vein Thrombosis/Pulmonary Embolism Present on Admission: No
== END 2017-02-06 13:15 | disposition short-term general hospital (02) | DRG 189 ==
LOC: ED 06:14 → ICU 10:11
PROVIDERS: ADMIT Internal Medicine; ATTEND Internal Medicine